=== PATIENT | female | born 1990 | race Caucasian/White ===

== ENCOUNTER 2016-08-11 14:52 | Emergency (ER) | payer BC, OTHER ==
[~2016-08-11] VITALS: Ht 170.2 cm; Wt 142.8 kg
[2016-08-11 14:54] VITALS: TEMP 36.6; Ht 170.2 cm; Wt 142.8 kg
[2016-08-11] MEDS ORDERED: LABETALOL HCL IV 5 MG/ML 20ML IV STA ×2 (15:59→16:54)
--- NOTE | 2016-08-11 16:01 | EMERGENCY ROOM VISIT NOTE ---
ED Visit Note First contact with patient: 15:05 I did evaluate and examine this patient myself. I did guide management for the patient. I agree with the APC's assessment as discussed. Please see the APC's dictation for further details. I did independently review the EKG and blood work. The patient was blowing her nose very forcefully today and developed soft tissue swelling to the right naris. On examination she appears to have a septal hematoma which is nontender to palpation. She is also very hypertensive. She states that she was previously on lisinopril but was taken off by her doctor because of the adverse reaction of cough. She was not placed on any other medications. She denies any headache, visual complaints, chest pain, shortness breath or urinary symptoms. I did order blood work on the patient as well as a twelve-lead EKG. She is placed on a monitor and given IV labetalol. I did discuss the case with Dr. Lai of otolaryngology. He will come in to the ED to assess the patient's septal hematoma.
--- NOTE | 2016-08-11 16:14 | DIAGNOSTIC IMAGING REPORT ---
SINGLE VIEW CHEST CLINICAL HISTORY: Hypertension. FINDINGS: 2 AP, portable, upright chest radiographs are compared to study dated 01/17/2015. The examination is degraded by portable technique, large body habitus, and patient rotation. The cardiomediastinal silhouette is unremarkable. The lungs and pleural spaces are clear. No pneumothorax is seen. The bony thorax is grossly intact. IMPRESSION: No active disease in the chest. Electronically signed by: Andres Peter M.D. 08/11/2016 4:13 PM Dictated Date/Time: 08/11/2016 4:12 PM
[2016-08-11 16:18] LABS: BASO % 0.2 %; BASO ABS # 0.02 K/uL (0-0.2); COMPLETE YES; EOS % 3.6 %; HEMATOCRIT 45.8 % (37-47); IG% 0.1 %; LYMPH % 30.5 %; LYMPH ABS # 2.91 K/uL (1.2-3.4); MEAN CELL VOLUME 87.7 fL (80-100); MEAN CORPUSCULAR HEMOGLOBIN 30.3 pg (25-34); MEAN CORPUSCULAR HGB CONC 34.5 g/dl (32-36); MEAN PLATELET VOLUME 10.6 fL (7.4-10.4); MONO % 4.9 %; NEUT % 60.7 %; PLATELET COUNT 234 K/uL (130-400); RED BLOOD COUNT 5.22 M/uL (4.2-5.4); WHITE BLOOD COUNT 9.54 K/uL (4.8-10.8)
--- NOTE | 2016-08-11 16:30 | EMERGENCY ROOM VISIT NOTE ---
History First contact with patient: 15:05 Chief Complaint: NOSE BLEED (MINOR) Stated Complaint: SOMETHING IN R SIDE NOSTRAL History of Present Illness The patient is a 25 year old female who presents to the Emergency Room with complaints of foreign body sensation in the right nostril that started today. Patient states that she started having a runny nose this morning and was blowing her nose several times when she began to have a nosebleed. She states the bleeding was a slow steady drip and lasted approximately 10 minutes, she was able to stop the bleeding with light pressure. She denies any bleeding into the back of her throat or swallowing blood. She states after the bleeding stopped she noticed a fullness in her right nostril which she thought was a blood clot and tried to remove this by blowing her nose but was unable to do so. She denies any facial trauma, history of nosebleeds, intranasal medications , use of intranasal recreational drugs. She does report a history of hypertension in the past, states her PCP had placed her on lisinopril, but this was stopped over a year ago due to her development of a cough. She is currently not on any antihypertensive medications. She states she does not take any blood thinners or regular aspirin products. Review of Systems GENERAL: Denies fevers, chills, malaise, fatigue, unintentional weight changes. HEENT: Denies dizziness, visual problems, hearing loss, tinnitus. Denies difficulty swallowing or oral lesions. + Nosebleed. PULMONARY: Denies cough, shortness of breath, sputum production or hemoptysis. CARDIOVASCULAR: Denies chest pain, palpitations, dyspnea on exertion, orthopnea or peripheral edema. GASTROINTESTINAL: Denies diarrhea, constipation, nausea, vomiting, or abdominal pain. GENITOURINARY: Denies dysuria, frequency, urgency or nocturia. NEUROLOGIC: Denies history of epilepsy, CVA, TIA or chronic headaches. MUSCULOSKELETAL: Denies history of joint tenderness/swelling. SKIN: Denies rashes or lesions. PSYCHIATRIC: Denies history of depression or mental illness. ENDOCRINE: Denies history of diabetes, thyroid disorders, abnormal hair growth or sexual dysfunction. Social History Smoking Status: Current Every Day Smoker Alcohol Use: none Occupation Status: employed Current/Historical Medications Scheduled Amoxicillin & Pot Clavulanate (Augmentin 875-125 mg), 1 TAB PO BID Hydrochlorothiazide (Hydrochlorothiazide), 1 TAB PO DAILY Prednisone (Prednisone), 50 MG PO DAILY Allergies Coded Allergies: No Known Allergies (Unverified , 08/11/16) Physical Exam Vital Signs Date Time Temp Pulse Resp B/P Pulse Ox O2 Delivery O2 Flow Rate FiO2 08/11/16 19:18 66 18 188/117 99 Room Air 08/11/16 18:07 75 18 135/79 08/11/16 17:06 76 18 207/125 08/11/16 15:52 178/118 08/11/16 15:33 82 18 235/148 98 Room Air 08/11/16 14:54 36.6 90 20 163/115 100 Room Air Physical Exam CONSTITUTIONAL: No acute distress. Well appearing and well nourished. Alert and oriented X 4 with normal affect. HEENT: Normocephalic, atraumatic. Pupils equal, round and reactive to light, EOMI. TMs normal. Pharynx normal. There is a large hematoma within the right naris that appears to be originating from the septum, nontender to palpation. Hematoma appears to completely obscure the naris. The left naris is patent. No active bleeding noted. NECK: Supple, full active range of motion without discomfort. RESPIRATORY: Clear to auscultation bilaterally with no wheezing, crackles, rhonchi or stridor. Equal expansion bilaterally. CARDIOVASCULAR: Regular rate and rhythm with no murmurs, rubs or gallops. Normal peripheral perfusion. No edema. GASTROINTESTINAL: Soft, nontender, nondistended. Bowel sounds present in all quadrants. MUSCULOSKELETAL: Full range of motion of all joints without discomfort. INTEGUMENTARY: No rash or other significant dermatologic conditions noted. NEUROLOGIC: Cranial nerves II-XII grossly intact. No focal neurologic deficits noted. Medical Decision & Procedures ER Provider Diagnostic Interpretation: SINGLE VIEW CHEST CLINICAL HISTORY: Hypertension. FINDINGS: 2 AP, portable, upright chest radiographs are compared to study dated 01/17/2015. The examination is degraded by portable technique, large body habitus, and patient rotation. The cardiomediastinal silhouette is unremarkable. The lungs and pleural spaces are clear. No pneumothorax is seen. The bony thorax is grossly intact. IMPRESSION: No active disease in the chest. ------ CT SCAN OF THE PARANASAL SINUSES WITH IV CONTRAST CLINICAL HISTORY: Epistaxis. Clinical concern for nasopharyngeal mass. COMPARISON STUDY: No priors. TECHNIQUE: High-resolution CT scan of the paranasal sinuses is performed following the IV administration of 120 cc of Optiray 320. Images are reviewed in the axial, sagittal, and coronal planes. IV contrast was not administered for this examination. CT DOSE: 662.66 mGy.cm FINDINGS: Nasopharynx: No nasopharyngeal mass is identified as clinically queried. Maxillary antra: There is moderate mucosal thickening and fluid with subtotal opacification of the right maxillary antrum. Hyperdense secretions are observed. Trace mucosal thickening is seen on the left maxillary antrum. Anterior ethmoid sinuses: Mild to moderate mucosal thickening on the right. Clear on the left. Posterior ethmoid sinuses: Moderate mucosal thickening on the right. Clear on the left. Sphenoid sinuses: Trace mucosal thickening seen bilaterally. Frontal sinuses: Mild mucosal thickening seen on the right. Clear on the left. Ostiomeatal complexes: Clear on the left. Almost completely occluded on the right. Frontoethmoidal and sphenoethmoidal recesses: The right frontoethmoidal recess is severely narrowed by mucosal thickening. The left frontoethmoidal recess is clear. The sphenoethmoidal recesses are clear, noting narrowing on the right secondary to mucosal thickening. Carotid arteries: The carotid arteries are compared noting a septal attachment on the right. Ethmoid roofs: There is asymmetric elevation of the right ethmoid roof as compared to the left. Nasal turbinates: Normal in appearance. Nasal septum: There is rightward deviation of the bony nasal septum with a large spur. Optic nerves: Covered. Orbits: The bony orbits are intact. Orbital contents are normal in appearance. Calvarium: The imaged calvarium is normal in appearance Mastoid air cells: There is a trace right mastoid effusion. The left mastoid air cells are clear. Brain parenchyma: Partially visualized brain parenchyma is within normal limits. IMPRESSION: 1. No mass lesion is identified as clinically queried. Follow-up with ENT is recommended. 2. Paranasal sinus disease as above. Laboratory Results 08/11/16 16:00 Red Blood Count 5.22, Mean Corpuscular Volume 87.7, Mean Corpuscular Hemoglobin 30.3, Mean Corpuscular Hemoglobin Concent 34.5, Mean Platelet Volume 10.6, Neutrophils (%) (Auto) 60.7, Lymphocytes (%) (Auto) 30.5, Monocytes (%) (Auto) 4.9, Eosinophils (%) (Auto) 3.6, Basophils (%) (Auto) 0.2, Neutrophils # (Auto) 5.79, Lymphocytes # (Auto) 2.91, Monocytes # (Auto) 0.47, Eosinophils # (Auto) 0.34, Basophils # (Auto) 0.02 08/11/16 16:00 Test 08/11/16 15:50 08/11/16 16:00 08/11/16 19:20 White Blood Count 9.54 K/uL (4.8-10.8) Red Blood Count 5.22 M/uL (4.2-5.4) Hemoglobin 15.8 g/dL (12.0-16.0) Hematocrit 45.8 % (37-47) Mean Corpuscular Volume 87.7 fL (80-100) Mean Corpuscular Hemoglobin 30.3 pg (25-34) Mean Corpuscular Hemoglobin Concent 34.5 g/dl (32-36) Platelet Count 234 K/uL (130-400) Mean Platelet Volume 10.6 fL (7.4-10.4) Neutrophils (%) (Auto) 60.7 % Lymphocytes (%) (Auto) 30.5 % Monocytes (%) (Auto) 4.9 % Eosinophils (%) (Auto) 3.6 % Basophils (%) (Auto) 0.2 % Neutrophils # (Auto) 5.79 K/uL (1.4-6.5) Lymphocytes # (Auto) 2.91 K/uL (1.2-3.4) Monocytes # (Auto) 0.47 K/uL (0.11-0.59) Eosinophils # (Auto) 0.34 K/uL (0-0.5) Basophils # (Auto) 0.02 K/uL (0-0.2) RDW Standard Deviation 40.2 fL (36.4-46.3) RDW Coefficient of Variation 12.6 % (11.5-14.5) Immature Granulocyte % (Auto) 0.1 % Immature Granulocyte # (Auto) 0.01 K/uL (0.00-0.02) Prothrombin Time 10.2 SECONDS (9.0-12.0) Prothromb Time International Ratio 1.0 (0.9-1.1) Activated Partial Thromboplast Time 27.9 SECONDS (21.0-31.0) Partial Thromboplastin Ratio 1.1 Anion Gap 5.0 mmol/L (3-11) Est Creatinine Clear Calc Drug Dose 149.0 ml/min Estimated GFR () 109.6 Estimated GFR (Non- 94.6 BUN/Creatinine Ratio 15.5 (10-20) Calcium Level 8.6 mg/dl (8.5-10.1) Total Bilirubin 0.4 mg/dl (0.2-1) Direct Bilirubin < 0.1 mg/dl (0-0.2) Aspartate Amino Transf (AST/SGOT) 12 U/L (15-37) Alanine Aminotransferase (ALT/SGPT) 27 U/L (12-78) Alkaline Phosphatase 87 U/L (45-117) Total Protein 7.1 gm/dl (6.4-8.2) Albumin 3.7 gm/dl (3.4-5.0) Lipase 115 U/L (73-393) Thyroid Stimulating Hormone (TSH) 0.875 uIu/ml (0.300-4.500) Urine Color YELLOW Urine Appearance CLOUDY (CLEAR) Urine pH 7.5 (4.5-7.5) Urine Specific [place] 1.041 (1.000-1.030) Urine Protein NEG (NEG) Urine Glucose (UA) NEG (NEG) Urine Ketones NEG (NEG) Urine Occult Blood NEG (NEG) Urine Nitrite NEG (NEG) Urine Bilirubin NEG (NEG) Urine Urobilinogen NEG (NEG) Urine Leukocyte Esterase NEG (NEG) Urine WBC (Auto) 1-5 /hpf (0-5) Urine RBC (Auto) 0-4 /hpf (0-4) Urine Hyaline Casts (Auto) 0 /lpf (0-5) Urine Epithelial Cells (Auto) >30 /lpf (0-5) Urine Bacteria (Auto) 1+ (NEG) Medications Administered Medications (Trade) Dose Ordered Sig/Twan Route Start Time Stop Time Status Last Admin Dose Admin Labetalol HCl (Normodyne IV) 10 mg NOW STAT IV 08/11/16 15:59 08/11/16 16:01 DC 08/11/16 15:59 10 MG Labetalol HCl 10 mg 10 mg NOW STAT IV 08/11/16 16:54 08/11/16 16:56 DC 08/11/16 17:15 10 MG Ampicillin Sodium/ Sulbactam Sodium/ Sodium Chloride (Unasyn Inj/Nss 100ml) 108 ml @ 200 mls/hr ONE ONCE IV 08/11/16 17:45 08/11/16 18:17 DC 08/11/16 17:55 200 MLS/HR Hydrochlorothiazide (Hydrochlorothiazide Tab) 12.5 mg NOW STAT PO 08/11/16 19:24 08/11/16 19:25 DC 08/11/16 19:30 12.5 MG ECG Indication: other (hypertension) Rate (beats per minute): 74 Rhythm: normal sinus Comparison ECG Date: no prior available Medical Decision CC: Patient presenting with complaint of foreign body sensation of the right nostril Interpretation of Labs: Unremarkable, specifically no electrolytes abnormalities , normal renal function. No proteinuria. She is not . Differential Diagnosis: Includes, but not limited to epistaxis, nasal trauma, septal hematoma, nasal foreign body, nasal pharyngeal mass. Summary: Patient was evaluated at bedside, history of physical exam performed. Patient is alert and oriented, no distress. No active bleeding from the nose. Physical exam findings concerning for a right sided septal hematoma versus intranasal mass. Patient's history does not suggest any causative trauma. This lesion is not actively bleeding and is nontender to palpation. Patient is quite hypertensive on initial evaluation, as well as on multiple rechecks, therefore additional workup with labs, UA, EKG, chest x-ray also ordered. IV labetalol given to treat persistent hypertension in the setting of possible bleeding. Patient discussed with my attending, Dr. Keen, who agrees with my assessment and plan. Patient was discussed with Dr. Lai, ENT service, who agrees to come evaluate the patient for possible surgical intervention. Patient evaluated at bedside by Dr. Lai, states not a septal hematoma concerning for a polyp, benign mass versus possible malignancy. Purulent discharge elicited during manipulation of the mass by Dr. Lai. He recommends CT of the sinuses with and without contrast, which was ordered. Patient given IV dose of Unasyn with plans to send her out on Augmentin and prednisone burst, which was recommended by Dr. Lai. Blood pressure transiently improved with IV labetalol but remains elevated. Patient has no other symptoms to her hypertension and has a known chronic diagnosis of this. She was started on 12.5 mg hydrochlorothiazide and instructed to follow closely with her PCP. Patient reassessed multiple times throughout ED stay, remained stable and well- appearing. Stable at time of discharge. Impression Primary Impression: Intranasal mass Additional Impression: Maxillary sinusitis Departure Information Dispostion Home / Self-Care Condition GOOD Prescriptions Hydrochlorothiazide (HYDROCHLOROTHIAZIDE) 12.5 Mg Tab 1 TAB PO DAILY for 30 Days, #30 TAB 1 Refill Prov: Charisma Cote., BLOCK SAWYER 08/11/16 Prednisone (Prednisone) 50 Mg Tab 50 MG PO DAILY for 4 Days, #4 TAB Prov: [place],Charisma Arango., BLOCK SAWYER 08/11/16 Amoxicillin & Pot Clavulanate (Augmentin 875-125 mg) 1 Tab Tab 1 TAB PO BID for 10 Days, #20 TAB Prov: Charisma Cote., BLOCK SAWYER 08/11/16 Referrals Cherelle Del Rosario D.O. (PCP) Kirss Lai M.D. Patient Instructions ED Sinusitis Abx Tx, My [facility], Polyps Nasal Additional Instructions Apply ice to the right side of your face/nose to help reduce swelling. 5 minutes on, 5 minutes off at a time, several times throughout the day. Use normal saline nasal spray to keep both nostrils moist. Use the Afrin nasal spray with the cotton swabs provided to you to pack the nostril if you start to have bleeding from your nose. Try to avoid blowing your nose. If you must below your nose, do so very gently. Prescriptions have been sent to your pharmacy for Augmentin, which is an antibiotic to treat sinus infection, prednisone, which is a steroid to treat the swelling in your nose, and hydrochlorothiazide to treat her high blood pressure. Please follow-up with your PCP in the next week to have your blood pressure rechecked and discuss ongoing medication needs for your blood pressure. Call Dr. Lai's office on Saturday at 8:30 AM to arrange for an appointment later that day. This is to follow-up for the lesion in your nose. Please return to the ER for any worsening symptoms, including severe headache, persistent bleeding from the nose that does not stop after 30 minutes, bleeding into the back of her throat or swallowing blood, vomiting up blood, chest pain, shortness of breath, severe dizziness or passing out, fevers/chills/feeling ill , or any other concerns. Problem Qualifiers Additional Impression: Maxillary sinusitis Chronicity: unspecified Qualified Codes: J32.0 - Chronic maxillary sinusitis
[2016-08-11 16:32] LABS: ALT/SGPT 27 U/L (12-78); AST/SGOT 12 U/L (15-37); BLOOD UREA NITROGEN 13 mg/dl (7-18); BUN/CREATININE RATIO 15.5 (10-20); CALCIUM 8.6 mg/dl (8.5-10.1); CARBON DIOXIDE 31 mmol/L (21-32); CHLORIDE 106 mmol/L (98-107); CREATININE 0.85 mg/dl (0.60-1.20); GLUCOSE 100 mg/dl (70-99); PARTIAL THROMBOPLASTIN RATIO 1.1; POTASSIUM 3.6 mmol/L (3.5-5.1); PROTHROMBIN TIME (PATIENT) 10.2 SECONDS (9.0-12.0); SODIUM 142 mmol/L (136-145)
[2016-08-11 16:43] LABS: ALKALINE PHOSPHATASE 87 U/L (45-117); THYROID STIMULATING HORMONE 0.875 uIu/ml (0.300-4.500)
[2016-08-11] MEDS ORDERED: OXYMETAZOLINE HCL 0.05% NA SPR 15 ML BTL ONE (17:00)
[2016-08-11] MEDS ORDERED: OPTIRAY 320 IV PRN (17:15)
[2016-08-11] MEDS ORDERED: AMPICILLIN/SULBACTAM SOD INJ 3,000 MG in SODIUM CHLORIDE 0.9% 100ML 100 ML IV ONE (17:45)
--- NOTE | 2016-08-11 17:49 | DIAGNOSTIC IMAGING REPORT ---
CT SCAN OF THE PARANASAL SINUSES WITH IV CONTRAST CLINICAL HISTORY: Epistaxis. Clinical concern for nasopharyngeal mass. COMPARISON STUDY: No priors. TECHNIQUE: High-resolution CT scan of the paranasal sinuses is performed following the IV administration of 120 cc of Optiray 320. Images are reviewed in the axial, sagittal, and coronal planes. IV contrast was not administered for this examination. CT DOSE: 662.66 mGy.cm FINDINGS: Nasopharynx: No nasopharyngeal mass is identified as clinically queried. Maxillary antra: There is moderate mucosal thickening and fluid with subtotal opacification of the right maxillary antrum. Hyperdense secretions are observed. Trace mucosal thickening is seen on the left maxillary antrum. Anterior ethmoid sinuses: Mild to moderate mucosal thickening on the right. Clear on the left. Posterior ethmoid sinuses: Moderate mucosal thickening on the right. Clear on the left. Sphenoid sinuses: Trace mucosal thickening seen bilaterally. Frontal sinuses: Mild mucosal thickening seen on the right. Clear on the left. Ostiomeatal complexes: Clear on the left. Almost completely occluded on the right. Frontoethmoidal and sphenoethmoidal recesses: The right frontoethmoidal recess is severely narrowed by mucosal thickening. The left frontoethmoidal recess is clear. The sphenoethmoidal recesses are clear, noting narrowing on the right secondary to mucosal thickening. Carotid arteries: The carotid arteries are compared noting a septal attachment on the right. Ethmoid roofs: There is asymmetric elevation of the right ethmoid roof as compared to the left. Nasal turbinates: Normal in appearance. Nasal septum: There is rightward deviation of the bony nasal septum with a large spur. Optic nerves: Covered. Orbits: The bony orbits are intact. Orbital contents are normal in appearance. Calvarium: The imaged calvarium is normal in appearance Mastoid air cells: There is a trace right mastoid effusion. The left mastoid air cells are clear. Brain parenchyma: Partially visualized brain parenchyma is within normal limits. IMPRESSION: 1. No mass lesion is identified as clinically queried. Follow-up with ENT is recommended. 2. Paranasal sinus disease as above. Electronically signed by: Andres Peter M.D. 08/11/2016 5:48 PM Dictated Date/Time: 08/11/2016 5:41 PM
[2016-08-11] MEDS ORDERED: AMOX875T PO (18:03)
[2016-08-11] MEDS ORDERED: PRED50TA PO (18:03)
--- NOTE | 2016-08-11 18:33 | HISTORY & PHYSICAL EXAMINATION ---
DATE OF ADMISSION: 08/11/2016 DIAGNOSIS: Acute epistaxis with possible right septal hematoma. HISTORY OF PRESENT ILLNESS: This 25-year-old lady presented to the ER with a foreign body sensation in the right nostril and when she blew her nose she started having epistaxis. She was able to stop bleeding with pressure; however, she noted a fullness in the right nostril. PAST MEDICAL HISTORY: Pertinent for hypertension. Evidently she was on lisinopril, but was taken off of it because of a cough with no other replacement. PAST MEDICAL HISTORY: Otherwise unremarkable. ALLERGIES: None known. MEDICATIONS: None at present. REVIEW OF SYSTEMS: Otherwise, negative. Specifically, she has had no history of chronic sinusitis or chronic headaches. PHYSICAL EXAMINATION: GENERAL: WNWD female, alert, oriented x3, coherent and cooperative. VITAL SIGNS: Temp 36.6, BP is elevated at very high of 235/148 and a low of 163/115. HEAD: Normocephalic. EYES: Normal. EARS: Tympanic membranes intact. NOSE: Nasal passages showed a hemorrhagic object in the right nostril. This was decongested with Afrin and anesthetized using topical Cetacaine. This appeared to be a round polypoid type lesion. This was grasped with forceps; however the object appeared to be attached superiorly and there was evidence of some purulence coming from behind the polyps. THROAT: Oropharynx normal. NECK: Supple. HEART: RRR. LUNGS: Clear. LABS: Her CBC was within normal limits with 9500 white count, with no elevation of eosinophils. The electrolytes were within normal limits. IMPRESSION: Right nasal polyp with no sign of hematoma, the differential would include a hemorrhagic polyp or a pyogenic granuloma, lower down on the list would be polyangiitis with eosinophilia and/or some type of more rare tumor. PLAN: Is for CT scan of the sinuses and then follow up in my office on Saturday and also control of the hypertension.
[2016-08-11] MEDS ORDERED: HYDR12.55 PO (18:45)
[2016-08-11 19:18] VITALS: BP 188/117; PULSE 66; O2SAT 99
[2016-08-11] MEDS ORDERED: HYDROCHLOROTHIAZIDE 25 MG TAB PO STA (19:24)
[2016-08-11 19:45] LABS: URINE APPEARANCE CLOUDY (CLEAR); URINE BILIRUBIN NEG (NEG); URINE COLOR YELLOW; URINE EPITHELIAL CELL AUTO >30 /lpf (0-5); URINE NITRITE NEG (NEG); URINE PH 7.5 (4.5-7.5); URINE SPECIFIC GRAVITY 1.041 (1.000-1.030); UROBILINOGEN NEG (NEG)
[2016-08-11 19:46] LABS: MANUAL MICROSCOPIC REQUIRED? NO; REVIEW REQ? YES
[2016-08-14] MEDS ORDERED: HYDR12.55 PO (14:08)
[2016-08-14] MEDS ORDERED: AMOX875T PO (14:08)
[2016-08-14] MEDS ORDERED: PRED50TA PO (14:08)
[2016-08-17] MEDS ORDERED: NRV5 PO (10:44)
[2016-08-17] MEDS ORDERED: CLIN300C10 PO (14:09)
== END 2016-08-11 19:38 | disposition home or self-care (01) ==
LOC: C.EDB 14:54 → C.EDD 19:38
DX: R22.0 Localized swelling, mass and lump, head (principal); J32.0 Chronic maxillary sinusitis; J33.9 Nasal polyp, unspecified; I10 Essential (primary) hypertension; F17.210 Nicotine dependence, cigarettes, uncomplicated

== ENCOUNTER 2016-08-16 12:34 | Observation (INO) | payer BC ==
[2016-08-14 14:08] VITALS: BMI 51.0
[2016-08-14 14:13] VITALS: BMI 51.0
[2016-08-15 09:45] VITALS: BMI 48.0
--- NOTE | 2016-08-15 10:06 | PAT Medication Instructions ---
Service Date August 15, 2016. Current Home Medication List Amoxicillin & Pot Clavulanate (Augmentin 875-125 mg), 1 TAB PO BID Hydrochlorothiazide (Hydrochlorothiazide), 1 TAB PO DAILY Prednisone (Prednisone), 50 MG PO DAILY Medication Instructions For Your Scheduled Surgery - Hold the following medications the morning of surgery: Hydrochlorothiazide (Hydrochlorothiazide), 1 TAB PO DAILY - Take the following medications the morning of surgery with a sip of water: Prednisone (Prednisone), 50 MG PO DAILY Amoxicillin & Pot Clavulanate (Augmentin 875-125 mg), 1 TAB PO BID - Take the following medications as scheduled the night before surgery: Amoxicillin & Pot Clavulanate (Augmentin 875-125 mg), 1 TAB PO BID If you have any questions please call us at [phone] or [phone] or [phone]
--- NOTE | 2016-08-15 12:35 | History and Physical ---
History & Physical Date August 15, 2016. Chief Complaint epistaxis/antrochoanal polyp, right, chronic pansinusitis History of Present Illness The patient is a 25 year old female with complaints of bleeding from right nostril after blowing nose, polyp hanging out right nostril Additional History Hepatic Disease: No Endocrine Disorder: No Kidney Disease: No Hypertension: Yes Heart Disease: No Bleeding Tendencies: Yes Infectious Diseases: No Allergies Coded Allergies: Lisinopril (Verified Adverse Reaction, Mild, COUGH, 08/15/16) Home Medications Scheduled Amoxicillin & Pot Clavulanate (Augmentin 875-125 mg), 1 TAB PO BID Hydrochlorothiazide (Hydrochlorothiazide), 1 TAB PO DAILY Prednisone (Prednisone), 50 MG PO DAILY Physical Examination Skin: warm/dry, no rash Eyes: normal inspection, EOMI, sclerae normal ENT: normal ENT inspection, pharynx normal, + pertinent finding (rightnostril totally blocked by polyp) Head: normocephalic, atraumatic Neck: supple, no adenopathy, trachea midline Respiratory/Chest: lungs clear, normal breath sounds, no respiratory distress Cardiovascular: regular rate, rhythm, no edema, no murmur Abdomen / GI: normal bowel sounds, non tender Back: normal inspection Extremities: normal inspection, normal range of motion Neurologic/Psych: no motor/sensory deficits, alert, normal reflexes, oriented x 3 Diagnosis epistaxis, chronic sinusitis, right antrochoanal polyp Plan of Treatment endoscopic sinus surgery, control epistaxis
[~2016-08-16] VITALS: Ht 170.2 cm; Wt 139.8 kg
[~2016-08-16 12:34] MED LIST: AMOX875T PO; CEFAZOLIN 2000 MG/60 ML D5W IV SCH; HYDR12.55 PO; LACTATED RINGER'S 1000ML 1,000 ML IV SCH; PRED50TA PO
[2016-08-16] MEDS ORDERED: LIDOCAINE HCL 2% 2 ML VIAL (20MG/ML) ONE (12:58)
[2016-08-16] MEDS ORDERED: MIDAZOLAM HCL 1 MG/ML 2ML VIAL ONE (12:58)
[2016-08-16] MEDS ORDERED: ONDANSETRON INJ 2 MG/ML 2 ML VIAL ONE (12:58)
[2016-08-16] MEDS ORDERED: ROCURONIUM BROMIDE 10 MG/ML 5 ML VIAL ONE (12:58)
[2016-08-16] MEDS ORDERED: FENTANYL CITRATE INJ 50 MCG/1 ML 2 ML VIAL ONE ×2 (12:58→13:59)
[2016-08-16] MEDS ORDERED: GLYCOPYRROLATE INJ 0.2 MG/ML VIAL ONE (12:58)
[2016-08-16] MEDS ORDERED: PROPOFOL IV EMULSION 10 MG/ML 20 ML VIAL IV ONE ×2 (12:58→14:46)
[2016-08-16] MEDS ORDERED: NEOSTIGMINE METHYLSULFATE 5 MG/5 ML SYR ONE (12:58)
[2016-08-16] MEDS ORDERED: DEXAMETHASONE SOD INJ 4 MG/ML VIAL ONE (12:58)
[2016-08-16] MEDS ORDERED: LIDO 2%/EPINEPHRINE 1:100000 20 ML VIAL INFIL ONE (12:59)
[2016-08-16] MEDS ORDERED: MUPIROCIN 2% OINT 22 GM TUBE ONE (12:59)
[2016-08-16] MEDS ORDERED: LIDOCAINE 4% INH SOLN 4 ML BTL ONE (12:59)
[2016-08-16] MEDS ORDERED: EpINEphrine INJ 1MG/ML AMP 1 MG/ML AMP ONE ×2 (12:59→14:34)
[2016-08-16] MEDS ORDERED: GELATIN SPONGE 12-7MM ONE (12:59)
[2016-08-16 13:00] VITALS: BP 137/112; PULSE 86; TEMP 36.6; O2SAT 96; Ht 170.2 cm; Wt 139.8 kg
[2016-08-16] MEDS ORDERED: TRIAMCINOLONE ACET 40 MG/ML VIAL ONE (13:00)
--- NOTE | 2016-08-16 13:14 | History & Physical Bridge Note ---
H&P Re-Evaluation Bridge Note: I have examined the patient, reviewed the History & Physical and in the interval since the performance of the History & Physical I have noted the following changes of clinical significance: No changes noted
[2016-08-16] MEDS ORDERED: ONDANSETRON INJ 2 MG/ML 2 ML VIAL IV PRN ×2 (14:00→16:00)
[2016-08-16] MEDS ORDERED: EpHEDrine SULFATE INJ 50 MG/ML AMP IV PRN (14:00)
[2016-08-16] MEDS ORDERED: PROMETHAZINE HCL INJ 6.25 MG in SODIUM CHLORIDE 0.9% 50ML 50 ML IV PRN (14:00)
[2016-08-16] MEDS ORDERED: CEFAZOLIN SOD 1 GM VIAL ONE (14:00)
[2016-08-16] MEDS ORDERED: FENTANYL CITRATE INJ 50 MCG/1 ML 2 ML VIAL IV PRN (14:00)
[2016-08-16] MEDS ORDERED: ATROPINE SULFATE 0.1 MG/ML 5ML SYR IV PRN (14:00)
[2016-08-16] MEDS ORDERED: EpHEDrine SULFATE INJ 50 MG/ML AMP ONE (14:05)
[2016-08-16] MEDS ORDERED: SUCCINYLCHOLINE CHLORIDE 20 MG/ML 10 ML VIAL IV ONE (14:46)
--- NOTE | 2016-08-16 15:57 | Anesthesiology Progress Note ---
Anesthesia Post Op Note Date & Time August 16, 2016 at 15:57 Vital Signs Pain Intensity: 0 Vital Signs Past 12 Hours Date Time Temp Pulse Resp B/P Pulse Ox O2 Delivery O2 Flow Rate FiO2 08/16/16 15:50 103 18 149/100 96 Mask 10 08/16/16 15:42 36.3 90 16 145/110 98 Mask 10 08/16/16 13:00 36.6 86 21 137/112 96 Room Air Notes Mental Status: alert / awake / arousable, participated in evaluation Pt Amnestic to Procedure: Yes Nausea / Vomiting: adequately controlled Pain: adequately controlled Airway Patency, RR, SpO2: stable & adequate BP & HR: stable & adequate Hydration State: stable & adequate Anesthetic Complications: no major complications apparent
[2016-08-16] MEDS ORDERED: ACETAMINOPHEN 325 MG TAB PO PRN (16:00)
[2016-08-16] MEDS ORDERED: OXYCODONE/ACETAMINOPHEN 5-325 TAB PO PRN ×2 (16:00)
[2016-08-16] MEDS ORDERED: OXAZEPAM 10MG CAP PO PRN (16:00)
--- NOTE | 2016-08-16 16:11 | OPERATIVE REPORT ---
DATE OF OPERATION: 08/16/2016 PREOPERATIVE DIAGNOSES: Chronic sinusitis with epistaxis and right antrochoanal polyp. POSTOPERATIVE DIAGNOSES: Same. PROCEDURE: Right and left frontal, right and left sphenoid, right and left total ethmoid, and right and left maxillary sinus antrostomy. SURGEON: Kriss Lai MD ANESTHESIA: General endotracheal. COMPLICATIONS: None. BLOOD LOSS: 100 mL. HISTORY OF PRESENT ILLNESS: A 25-year-old lady with acute bleeding from a large right nasal polyp that was hanging out of her nose. Because of the bleeding, she requested definitive treatment. DESCRIPTION OF PROCEDURE: The patient was brought to the operating room placed in supine position. General endotracheal anesthesia was induced. She was prepped with Betadine paint and draped in usual sterile manner. Nose was decongested using topical cottonoids with a solution of 4 mL of 4% Xylocaine mixed with 1 mL of epinephrine. Injection of 1% Xylocaine with 1:100,000 strength epinephrine was also used. A PrestaShop device was calibrated and used for the entire procedure. The right sphenoid was cannulated with guidewire, dilated using 6 mm balloon as was the left sphenoid. The right maxillary sinus had a large antrochoanal polyp; however, the left maxillary sinus was cannulated with a guidewire and dilated using the 6 mm balloon. The right frontal sinus was cannulated with guidewire and dilated using the 6 mm balloon. The guidewire was left in place as a marker. Frontal sinusotomy was performed by removing the anterior wall and the posterior wall of the agger nasi cell. At this point, total ethmoidectomy was performed. The entire middle meatus and all the ethmoid air cells were filled with polyps. The bullae ethmoidalis was opened and the ground lamella was penetrated and the posterior ethmoid air cells were opened. The skull base of lamina papyracea were delineated with the BrainLAB device and all the posterior ethmoid air cells were exonerated using the shaver coupled with the BrainLab device and then these structures were followed anteriorly to exonerate all the anterior ethmoid air cells up to the previously dilated nasofrontal duct. The right nasofrontal duct was medial to a Ed type 3 supraethmoidal air cell. The maxillary sinus was opened by removing the large right antrochoanal polyp and polypoid tissue inside the sinus. She had already eroded a large opening; however, the natural ostial had to be connected to this large posterior accessory opening, creating 1 maxillary sinus opening. Sphenoid was opened by removing polypoid tissue at the anterior face at the inferior border of the superior turbinate. The left frontal sinusotomy, total ethmoidectomy, sphenoidotomy, and maxillary sinus antrostomies were performed in similar manner. On the left side, the sphenoid and maxillary sinus ostia were left as the natural opening after ballooning. The stents were placed. There was 1 mini stent in the right nasofrontal duct and 2 regular stents in the ethmoid area. The patient still had a septal deviation to the right, however, this was not corrected due to patient's hypertension and amount of bleeding. Septoplasty may be performed at a later time if patient desires. The patient tolerated the procedure well and was taken to recovery area in satisfactory condition. I attest to the content of the Intraoperative Record and any orders documented therein. Any exceptio ns are noted below.
[2016-08-16] MEDS ORDERED: NURSING VERBAL MED ORDER ONE (16:15)
[2016-08-16] MEDS ORDERED: IV FLUIDS COMPLETED PRN (16:30)
[2016-08-16] MEDS ORDERED: SODIUM CHLORIDE 0.65% NA SOLN 45 ML (OCEAN) PRN (16:45)
[2016-08-16 17:00] VITALS: BP 160/110; PULSE 88; TEMP 36.8; O2SAT 94
[2016-08-16] MEDS ORDERED: AMLODIPINE BESYLATE 5 MG TAB PO ONE (17:15)
[2016-08-16 17:30] VITALS: BP 153/103; PULSE 83; TEMP 36.6; O2SAT 93; O2SAT 94
--- NOTE | 2016-08-16 17:48 | Medical Consult ---
Consultation Date of Consultation: August 16, 2016. Attending Physician: Kriss Lai M.D. Reason for Consultation: HTN History of Present Illness 25 year old female who is s/p right and left frontal, right and left sphenoid, right and left total ethmoid, and right and left maxillary sinus antrostomy today by Dr. aLi. Patient was seen in the ER 3 days ago for epistaxis and feeling of a foreign body in her right nostril. Patient was found to have nasal polyp. She was seen by Dr. Lai at that time and then presented for the planned procedure today. Patient has a history of hypertension. She had been on Lisinopril in the past but it was stopped a few months ago due to cough. Per outpatient records, patient was to be taking amlodipine however reports she never started taking it. When she was seen in the ER 3 days ago, BP was noted to be elevated and she was treated with IV Labetalol and discharged in HCTZ. Patient reports she has not started taking the HCTZ either. Post operatively the patient is doing well. She reports she sneezed once and now she has some mild epistaxis. She reports her pain is well controlled. She reports a mild headache. She denies chest pain and shortness of breath. No abdominal pain, nausea, or vomiting. She denies fever and chills. Patient is noted to be somewhat tearful and anxious due to the bleeding. Past Medical/Surgical History Medical Problems: (1) Chronic bronchitis Status: Chronic (2) HTN (hypertension) Status: Chronic Family History noncontributory Social History Smoking Status: Current Every Day Smoker Alcohol Use: occasionally Allergies Coded Allergies: Lisinopril (Verified Adverse Reaction, Mild, COUGH, 08/16/16) Home Medications Augmentin 875-125 mg (Amoxicillin & Pot Clavulanate) 1 Tab Tab 1 Tab PO BID 10 Days WILL COMPLETE 08-23-16 Hydrochlorothiazide 12.5 Mg Tab 1 Tab PO DAILY HAS NOT STARTED MEDICATION YET Current Inpatient Medications Current Inpatient Medications Medications (Trade) Dose Ordered Sig/Twan Route Start Time Stop Time Status Last Admin Dose Admin Cefazolin Sodium 60 ml @ 100 mls/hr PREOP IV 08/16/16 06:00 08/16/16 18:00 Lactated Ringer's (Lr 1000ml) 1,000 ml @ 15 mls/hr Q24H IV 08/16/16 06:00 08/16/16 18:00 Fentanyl Citrate (Fentanyl Inj) 50 mcg Q5M PRN IV 08/16/16 14:00 08/16/16 19:00 Ondansetron HCl 4 mg 4 mg ONE PRN IV 08/16/16 14:00 08/16/16 19:00 Promethazine HCl/ Sodium Chloride (Phenergan Inj/ Nss 50ml) 50.25 ml @ 202 mls/hr ONE PRN IV 08/16/16 14:00 08/16/16 19:00 Ephedrine Sulfate (EpHEDrine SULFATE INJ) 5 mg Q5M PRN IV 08/16/16 14:00 08/16/16 19:00 Atropine Sulfate (Atropine Sulfate 0.1MG/Ml Inj) 0.5 mg Q1M PRN IV 08/16/16 14:00 08/16/16 19:00 Acetaminophen (Tylenol Tab) 650 mg Q4H PRN PO 08/16/16 16:00 09/15/16 15:59 Oxycodone/ Acetaminophen (Percocet 5-325mg Tab) 1 tab Q4H PRN PO 08/16/16 16:00 08/30/16 15:59 Oxycodone/ Acetaminophen (Percocet 5-325mg Tab) 2 tab Q4H PRN PO 08/16/16 16:00 08/30/16 15:59 Ondansetron HCl (Zofran Inj) 4 mg ONE PRN IV 08/16/16 16:00 09/15/16 15:59 Oxazepam (Serax Cap) 10 mg HS PRN PO 08/16/16 16:00 09/15/16 15:59 Miscellaneous (Iv Fluids Completed) 1 ea PRN PRN N/A 08/16/16 16:30 08/16/17 16:29 Sodium Chloride ([place] Nasal [place]) 1 sprays PRN PRN NA 08/16/16 16:45 09/15/16 16:44 Amlodipine Besylate (Norvasc Tab) 5 mg QAM PO 08/17/16 09:00 09/16/16 08:59 Hydralazine HCl (HydrALAZINE INJ) 10 mg Q8H PRN IV. 08/16/16 17:15 09/15/16 17:14 Review of Systems ROS per HPI, all other systems reviewed and negative Physical Exam Date Time Temp Pulse Resp B/P Pulse Ox O2 Delivery O2 Flow Rate FiO2 08/16/16 17:30 94 Nasal Cannula 2.0 08/16/16 17:00 36.8 88 20 160/110 94 Room Air 08/16/16 16:30 Nasal Cannula 2.0 08/16/16 16:20 90 18 138/98 94 Nasal Cannula 3 08/16/16 16:10 36.5 100 18 139/92 94 Nasal Cannula 3 08/16/16 16:00 100 18 165/106 95 Mask 6 08/16/16 15:50 103 18 149/100 96 Mask 10 08/16/16 15:42 36.3 90 16 145/110 98 Mask 10 08/16/16 13:00 36.6 86 21 137/112 96 Room Air General Appearance: + mild distress (tearful and crying however in no acute distress) Head: normocephalic Eyes: normal inspection ENT: + nasal drainage (small amount of bloody drainage noted from both nares, R >L) Neck: supple, no JVD Respiratory/Chest: no respiratory distress, + decreased breath sounds Cardiovascular: regular rate, rhythm, no edema, normal peripheral pulses Abdomen/GI: normal bowel sounds, non tender, soft Extremities/Musculoskelatal: normal inspection, no calf tenderness Neurologic/Psych: no motor/sensory deficits, alert, oriented x 3 Skin: normal color, warm/dry Assessment & Plan S/P ENDOSCOPIC NASAL SURGERY - patient presented to the ER on 08/11 with epistaxis and found to have nasal polyp; was evaluated by Dr. Lai and presented for planned procedure today - s/p right and left frontal, right and left sphenoid, right and left total ethmoid, and right and left maxillary sinus antrostomy - small amount of bleeding from both nares noted - management as per ENT HTN - history of HTN, was taken off Lisinopril a few months ago due to cough and was to start amlodipine however never did - BP currently 160/110 - suspect anxiety is contributing however had high BPs intraoperatively as well - will resume Norvasc 5mg daily and provide PRN hydrazine DVT PROPHYLAXIS - deferred to ENT Attending addendum: The patient was seen and examined Nose bleed has stopped Denies any other symptoms O/E Has nasal pack in place Hemodynamically stable Chest-occasional wheezing anteriorly Heart-regular.no murmur Abdomen-benign,no masses ,bowel sound present Extremities-trace edema bilaterally Labs and Imaging studies were reviewed Has HTN and not been taking her usual med since May Agree with the assessment and plan. DR Jasmyne Infante Thank you for this consultation. We will follow the patient with you during their hospital stay. You can reach a [facility] 22/10 via pager @ .
[2016-08-16 18:45] VITALS: BP 151/101; PULSE 77; TEMP 36.8; O2SAT 94
[2016-08-16] MEDS: HydrALAZINE HCL 20 MG/ML VIAL IV. PRN (18:50)
[2016-08-16 19:32] VITALS: BP 159/95; PULSE 76; TEMP 37.3; O2SAT 94
[2016-08-16 23:10] VITALS: BP 156/88; PULSE 90; TEMP 36.8; O2SAT 94
[2016-08-17 03:09] VITALS: BP 138/89; PULSE 90; TEMP 36.2; O2SAT 94
[2016-08-17 07:18] VITALS: BP 141/101; PULSE 69; TEMP 36.7; O2SAT 93
--- NOTE | 2016-08-17 07:45 | Anesthesiology Progress Note ---
Anesthesia Post Op Note Date & Time August 17, 2016 at 07:45 Vital Signs Pain Intensity: 0.0 Vital Signs Past 12 Hours Date Time Temp Pulse Resp B/P Pulse Ox O2 Delivery O2 Flow Rate FiO2 08/17/16 07:18 36.7 69 20 141/101 93 Room Air 08/17/16 03:09 36.2 90 18 138/89 94 Room Air 08/16/16 23:10 36.8 90 18 156/88 94 Room Air 08/16/16 20:00 Room Air Notes Mental Status: alert / awake / arousable, participated in evaluation Pt Amnestic to Procedure: Yes Nausea / Vomiting: adequately controlled Pain: adequately controlled Airway Patency, RR, SpO2: stable & adequate BP & HR: stable & adequate Hydration State: stable & adequate Anesthetic Complications: no major complications apparent
[2016-08-17 08:03] LABS: HEMATOCRIT 44.4 % (37-47); MEAN CELL VOLUME 86.5 fL (80-100); MEAN CORPUSCULAR HEMOGLOBIN 29.6 pg (25-34); MEAN CORPUSCULAR HGB CONC 34.2 g/dl (32-36); MEAN PLATELET VOLUME 10.5 fL (7.4-10.4); PLATELET COUNT 248 K/uL (130-400); RED BLOOD COUNT 5.13 M/uL (4.2-5.4); WHITE BLOOD COUNT 12.21 K/uL (4.8-10.8)
[2016-08-17 08:30] LABS: BUN/CREATININE RATIO 24.2 (10-20); CREATININE 0.76 mg/dl (0.60-1.20); POTASSIUM 3.6 mmol/L (3.5-5.1)
[2016-08-17] MEDS ORDERED: PROPRANOLOL HCL 60 MG LA CAP PO SCH (09:00)
[2016-08-17] MEDS ORDERED: AMLODIPINE BESYLATE 5 MG TAB PO SCH (09:00)
[2016-08-17] MEDS ORDERED: TRIAMTERENE/HCTZ 37.5/25MG TAB PO SCH (09:00)
[2016-08-17 09:52] VITALS: BP 152/102; PULSE 69
[2016-08-17] MEDS: HydrALAZINE HCL 20 MG/ML VIAL IV. PRN (09:57)
[2016-08-17] MEDS ORDERED: NRV5 PO (10:44)
--- NOTE | 2016-08-17 10:45 | Discharge Instructions ---
Discharge Instructions Date of Service August 17, 2016. Admission Reason for Admission: Hypertension Following Surgery Discharge Discharge Diagnosis / Problem: same Discharge Goals Goal(s): Therapeutic intervention Activity Recommendations Activity Limitations: resume your previous activity . Instructions / Follow-Up Instructions / Follow-Up ACTIVITY RECOMMENDATIONS: * Being up and around is good, but no strenuous activity, heavy lifting or physical exertion for one week. * Keep your head elevated 30 degrees when lying down or sleeping. * Do not blow your nose for 48 hours, sniff back instead. * Avoid hot showers. OVER THE COUNTER MEDICATIONS: * You may use Tylenol * Avoid aspirin or aspirin containing products, e.g. as they may increase bleeding. SPECIAL CARE INSTRUCTIONS: * Expect to have bloody drainage from your nose and/or down your throat for one to three days. Change drip pad as needed. * Begin irrigating your nose with saline solution today, at least six to ten times per day and sniff back to help remove old clots or crust. * You may experience nasal and facial congestion, pain and pressure, this is normal. * Please call with any significant and/or progressive pain, redness, swelling around the eyes, visual changes, fever of 101.5 degrees F, active bleeding or any problems or concerns. * If active bleeding occurs, spray the nose three times at one minute intervals with Afrin spray and call or cell phone: . If unable to reach the doctor, go to the nearest Emergency Department. Special Diet: * Avoid extremely hot fluids. FOLLOW UP VISIT: Follow-up Visit with Dr. Lai If not already scheduled, please call to schedule. Current Hospital Diet Patient's current hospital diet: Regular Diet Discharge Diet Recommended Diet: Regular Diet Procedures Procedures Performed: Endoscopic sinus surgery right and left frontal sinusotomies, right and left sphenoid sinusotomies, right and left total ethmoidectomies, right and left maxillary sinusotomies with computer guidance Pending Studies Studies pending at discharge: no Medical Emergencies . Who to Call and When: Medical Emergencies: If at any time you feel your situation is an emergency, please call 911 immediately. . Non-Emergent Contact Non-Emergency issues call your: Primary Care Provider . "Provider Documentation" section prepared by Kriss Lai. . VTE Core Measure Inpt VTE Proph given/why not?: SCD's [place] Drug Monitoring Program Search Results: no issues identified
[2016-08-17 12:00] VITALS: BP 165/117; PULSE 80; TEMP 37; O2SAT 94
[2016-08-17 13:18] VITALS: BP 154/97; PULSE 84
[2016-08-17 14:04] VITALS: BP 154/97; PULSE 84; TEMP 37; O2SAT 94
[2016-08-17] MEDS ORDERED: CLIN300C10 PO (14:09)
--- NOTE | 2016-08-17 14:27 | PROGRESS NOTE ---
DATE: 08/17/2016 PROGRESS NOTE AND DISCHARGE SUMMARY PROGRESS NOTE: The patient feels much better after the sinus surgery. She has had no bleeding and is able to tolerate diet. OBJECTIVE: NOSE: The nasal passages are patent with no sign of bleeding. IMPRESSION: Status post functional endoscopic sinus surgery with no complications. PLAN: To start her on clindamycin because the culture is starting to grow out Staphylococcus aureus, and she does have prescriptions for her blood pressure medicines from Dr. Del Rosario, her primary care doctor, which she will bead picker today and start. She is to see me next week in the office for followup. SUHAIL
--- NOTE | 2016-09-05 14:14 | DISCHARGE SUMMARY ---
ADMITTING DIAGNOSIS: Acute sinusitis with epistaxis. DISCHARGE DIAGNOSES: Same plus polyps and Staphylococcus aureus infection. HISTORY: A 25-year-old with acute onset of epistaxis and a large polyp hanging out at the right nostril, admitted for therapeutic intervention. HOSPITAL COURSE: The patient was taken to the operating room on Saturday, the day of the procedure. She underwent endoscopic sinus surgery without complications; however, her blood pressure was high postop and therefore the patient was admitted and observed overnight. Consultation was obtained with Radha Davis, the [facility] hospitalist. She is being followed by Dr. Del Rosario for her hypertension. She is discharged home on August 17 with a prescription for clindamycin and to fill her prescriptions for hypertensive medication from [facility] Del Rosario. She is to return for followup in my office next week.
== END 2016-08-17 14:55 | disposition home or self-care (01) ==
LOC: ENRESERVTM → ENRESERVDT → C.ACU 12:34 → C.MSW 15:59
PROVIDERS: ADMIT Otolaryngology; ATTEND Otolaryngology
DX: J32.9 Chronic sinusitis, unspecified (principal); J33.9 Nasal polyp, unspecified; R04.0 Epistaxis; I10 Essential (primary) hypertension; B95.61 Methicillin susceptible Staphylococcus aureus infection as the cause of diseases classified elsewhere; F17.200 Nicotine dependence, unspecified, uncomplicated

== ENCOUNTER → 2016-09-24 | Outpatient (CLI) | payer BC ==
[~2016-09-24] MED LIST changes: -CEFAZOLIN 2000 MG/60 ML D5W IV SCH; +CLIN300C10 PO; -LACTATED RINGER'S 1000ML 1,000 ML IV SCH; +NRV5 PO; -PRED50TA PO
== END | disposition home or self-care (01) ==
LOC: C.LABSPEC 16:24
PROVIDERS: ATTEND Dermatology
DX: L73.2 Hidradenitis suppurativa (principal)

== ENCOUNTER 2017-03-23 15:33 | Emergency (ER) | payer BC ==
[~2017-03-23] VITALS: Ht 170.2 cm; Wt 143.5 kg
[2017-03-23 15:48] VITALS: TEMP 36.8; Ht 170.2 cm; Wt 143.5 kg
[2017-03-23] MEDS ORDERED: NRV/5 PO (15:55)
[2017-03-23] MEDS ORDERED: ACET-1256 PO (15:55)
[2017-03-23] MEDS ORDERED: AMLODIPINE BESYLATE 5 MG TAB PO ONE (16:45)
[2017-03-23] MEDS ORDERED: HYDROCODONE/ACETAMOPHEN 5/325MG TAB PO ONE (16:45)
[2017-03-23 17:27] VITALS: O2SAT 99
--- NOTE | 2017-03-23 17:37 | DIAGNOSTIC IMAGING REPORT ---
LUMBAR SPINE MRI HISTORY: Lumbar back with L sided leg pain TECHNIQUE: Multiplanar multisequence MRI of the lumbar spine was performed without the use of contrast. COMPARISON: None. FINDINGS: For the purpose of the report the L5-S1 disc space will be located on axial image 30 of 34. Alignment and curvature are intact. No fractures identified. Moderate disc space narrowing at L3-L4 and L4-L5. Mild disc space narrowing at L5-S1. The conus terminates at the T12-L1 disc space. Mild left paraspinal edema seen from L3 through L5. This is of uncertain etiology and could be related to denervation injury. L1-L2: No significant central canal or neural foraminal narrowing. L2-L3: No significant central canal or neural foraminal narrowing. L3-L4: There is a large central disc extrusion which measures 2.5 x 1.5 x 1.0 cm. This demonstrates superior subligamentous migration. There may be an associated sequestered fragment. This results in severe central canal narrowing at the L3-L4 disc space level and posterior to the L3 vertebral body with compression of multiple nerve roots at these levels. The thecal sac measures a diameter of 4 mm. No significant neural foraminal narrowing. L4-L5: Small to moderate central/left paracentral broad-based posterior disc protrusion. This results in mild central canal narrowing and abuts the transiting left L5 nerve root. There is mild left-sided neural foraminal narrowing. L5-S1: Moderate sized left paracentral focal disc protrusion demonstrating mild inferior subligamentous migration. This measures 14 x 9 mm and abuts and displaces the transiting left S1 nerve root. There is mild left-sided neural foraminal narrowing and mild left-sided central canal narrowing. IMPRESSION: 1. Large central disc extrusion at L3-L4 with superior subligamentous migration. There may be an associated sequestered disc fragment. This results in severe central canal narrowing with compression of multiple nerve roots as described above. Urgent surgical consultation is recommended given the severe central canal narrowing and compression of multiple nerve roots. 2. Additional disc protrusions at L4-L5 and L5-S1 as described above. Electronically signed by: Hitesh Saucedo M.D. 03/23/2017 5:35 PM Dictated Date/Time: 03/23/2017 5:26 PM
[2017-03-23] MEDS ORDERED: DEXAMETHASONE INJ 10 MG in SYRINGE 0 ML IV ONE (18:00)
[2017-03-23] MEDS ORDERED: TRAMADOL HCL 50 MG HOME PACK PO ONE (18:15)
[2017-03-23] MEDS ORDERED: PRED20TA2 PO (18:18)
[2017-03-23] MEDS ORDERED: TRAM-10 PO (18:18)
[2017-03-23 18:33] VITALS: BP 168/120; PULSE 72
--- NOTE | 2017-03-23 22:02 | EMERGENCY ROOM VISIT NOTE ---
ED Visit Note First contact with patient: 16:01 Chief Complaint: Lower back pain. History of Present Illness: Ms. Maldonado is a 26-year-old white female who ambulates into the ED complaining of lumbar back pain. Historically patient reports she's had lumbar back pain in the past approximately 4-5 years ago had an MRI done of her lower back done locally was told she had a herniated disc. She was not referred for specialty treatment but was her scribed steroids and exercise therapy and had resolution of symptoms and reports she has had no complications since. Patient reports approximately one week ago she started developing mild lower back pain. Since that time her pain has gradually increased in intensity. She places her discomfort in the L3-L4 area. She describes her pain as a "pinching " sensation. Associated with her pain she reports she has a numbness sensation throughout the lower extremity. Her pain worsens with flexion and extension of the waist, sneezing and coughing. She currently rates her discomfort 7/10. She reports she's been using [id number] ibuprofen and acetaminophen without relief of her discomfort. Additionally she reports when she ambulates she feels like her left leg is going to "go out" on her. She denies fevers, chills, sweats, skin eruptions, skin color changes, recent direct or repetitive trauma, upper respiratory tract symptoms, shortness of breath, chest pain, abdominal pain, nausea, vomiting, diarrhea, constipation, rectal bleeding, black/tarry stools, urinary symptoms, hematuria, vaginal bleeding, vaginal discharge, bowel and bladder dysfunction, history of cancer, history of IV drug use. Additionally he was noted that the patient was hypertensive. When questioned she reports she ran out of her medication a couple weeks ago and has just stopped it without contacting her PCP. Review of Systems: As noted above in history of present illness. All body systems were reviewed and found to be negative as noted above. Past Medical History: As previously noted and hypertension, bronchitis, status post section Current Medications: Amlodipine, Tylenol. Allergies to Medications: Lisinopril. Social History: Patient is currently employed; she feels safe in her home environment; she admits to tobacco use and denies alcohol use. Physical Examination: Vital Signs: Date Time Temp Pulse Resp B/P (MAP) Pulse Ox O2 Delivery O2 Flow Rate FiO2 03/23/17 18:33 72 20 168/120 03/23/17 17:27 87 20 171/108 99 Room Air 03/23/17 15:48 36.8 91 20 202/137 98 Room Air GENERAL: 26-year-old female in mild to moderate distress due to pain, nontoxic- appearing, afebrile and hemodynamically stable. NEUROLOGICAL: Awake, alert and oriented to person, place and time. Answering questions appropriately and following commands. Normal gait. Good hand eye coordination. No focal motor or sensory deficits. SKIN: Warm, dry and pink. No soft tissue eruptions or trauma noted. HEENT: Atraumatic and normocephalic. BACK: No tenderness over the bony cervical and thoracic spine. Mild to moderate tenderness over the C3-C4 area of the bony spine without bony deformity , bony crepitus, swelling, ecchymosis or step-offs. Minimal tenderness throughout the local paraspinous muscles without spasm. Positive straight leg raise test. No CVA tenderness. THORAX: Lungs sounds are clear to auscultation and equal bilaterally with symmetrical chest wall. ABDOMEN: Obese, soft and nontender. Positive bowel sounds in all quadrants. No guarding, rigidity or organomegaly. EXTREMITIES: Moves all extremities well on command and with purpose. All distal neurovascular statuses are intact and equal bilaterally. No calf tenderness or cords. Lower Extremities: 4/5 muscle strength in all movements of the hips, knees, ankles and feet. Able to distinguish light sensations through all dermatomes of the feet. Patellar and Achilles deep tendon reflexes are 2+. ED Course: Patient is assessed as noted above. Patient's medication list was reviewed. Patient was given [place] 5/325 mg tablet by mouth and 10 mg of amlodipine by mouth for her blood pressure. Lumbar Spine MRI: Was reviewed by myself and read by the radiologist showing a large central disc extrusion at L3-L4 or with superior sub-ligament margin resulting in severe central canal narrowing with compression of multiple nerve roots. Patient's case was reviewed with ; we agreed on diagnostic approach , treatment, disposition and plan. Patient's case was reviewed with Dr. Haas, with a orthopedic wildfire prevention specialist; he recommended that the patient IV steroids while in the ED tonight and be discharged home with bed rest, Ultram and high-dose steroids. He also requested that she call the office after the holiday for office follow-up. An IV lock was initiated and patient received 10 mg of Decadron IV. Patient was educated about today's findings and instructed on her treatment plan ; she verbalized understanding and agreement with this plan. Clinical Impression: Acute lumbar back pain with left-sided radiculopathy. Decision-Making: Initially my differential diagnosis I considered lumbar strain , herniated disc, discitis, sciatica and other causes. Patient's blood pressure: Elevated because of medication noncompliance. Blood pressure disposition: Patient was treated in the emergency department and encouraged to follow-up with primary care provider. Disposition: Patient discharged home in stable condition; prior to departure she was reassessed and subjectively reported she was feeling better and rated her discomfort 3/10. Plan: Patient was prescribed 50 mg of Ultram every 6 hours as needed for pain. Patient was placed on 60 mg of prednisone once a day for 5 days. Patient is instructed to use bed rest until followed up with product delivery specialist. Patient was encouraged to use a walker during ambulation. Patient was encouraged to follow-up with Dr. Willingham for definitive care and treatment. Patient was encouraged return to the ED for worsening/uncontrolled pain, worsening numbness or weakness of the left lower leg, abdominal pain, fevers or any new/concerning symptoms.
== END 2017-03-23 18:40 | disposition home or self-care (01) ==
LOC: C.EDB 15:33 → C.EDD 18:40
DX: M51.16 Intervertebral disc disorders with radiculopathy, lumbar region (principal); I10 Essential (primary) hypertension; F17.200 Nicotine dependence, unspecified, uncomplicated

== ENCOUNTER 2022-11-05 05:30 | Inpatient (IN) ==
--- NOTE | 2022-09-07 12:29 | PAT Medication Instructions ---
Medication Instructions Date of Service September 07, 2022 Home Medications nifedipine 30 mg tablet,extended release 60 mg PO QAM vits no.129-ferrous fum 27 mg iron-folic acid 800 mcg tablet ( One Daily) 1 tab PO QAM aspirin 81 mg tablet,delayed release (Adult Low Dose Aspirin) 81 mg PO DAILY insulin aspart U-100 100 unit/mL subcutaneous solution (Novolog U-100 Insulin aspart) 1 sliding scale dose subcut USEASDIRECTD insulin glargine-yfgn 100 unit/mL (3 mL) subcutaneous pen (Semglee (insulin glargine-yfgn) Pen) 42 unit subcut QPM ASK your prescriber and surgeon aspirin 81 mg tablet,delayed release (Adult Low Dose Aspirin) 81 mg PO DAILY DO NOT take the morning of surgery vits no.129-ferrous fum 27 mg iron-folic acid 800 mcg tablet ( One Daily) 1 tab PO QAM insulin aspart U-100 100 unit/mL subcutaneous solution (Novolog U-100 Insulin aspart) 1 sliding scale dose subcut USEASDIRECTD Take morning of surgery With a small sip of water, OTHERWISE NOTHING TO EAT OR DRINK AFTER MIDNIGHT: nifedipine 30 mg tablet,extended release 60 mg PO QAM Take evening before surgery insulin glargine-yfgn 100 unit/mL (3 mL) subcutaneous pen (Semglee (insulin glargine-yfgn) Pen) 42 unit subcut QPM Other Notes If you have any questions please call us at [phone] or [phone] or [phone] or [phone]
--- NOTE | 2022-09-17 15:37 | Anesthesiology Consultation ---
Date of Service September 17, 2022 Assessment & Plan (1) Encounter for pre-operative examination: - COVID screening: Per assessment on 09/17: No known COVID-19 positive contacts or current COVID-19 related symptoms. Travel screen negative. Patient vaccinated. At surgeon discretion if preop Covid testing being done. - S/P (09/19/2011): Attempted SAB for 45 minutes. Unable to gain CSF despite multiple SAB needles. Discussed with OB. Decision made to convert to GETA. ETT on first attempt with Jamison #2, ETT obstructed. ETT changed. Sats less than 90% for approximately 10 seconds. Always greater than 85%. Extubated without complications. Chart Review Chart Review: Acceptable Risk for Surgery and Patient seen in Pre Admission Testing Teaching & Discussion Pre-Anesthesia Teaching/Discussion Notes: Instructed NPO after midnight before surgery,except medications with 15 cc of water. Medication instructions provided according to the PAT guidelines. History Surgery Operation Date: 11/05/22 10:05 Proposed Procedures p Section in LD (Delivery of Baby Through Abdominal Incision) - Power Flanagan MD s Post Bilateral Tubal Ligation Labor & Deliv - Power Flanagan MD Height/Weight Height: 5 ft 7 in Weight: 156.1 kg Allergies Allergy/AdvReac Type Severity Reaction Status Date / Time lisinopril AdvReac Mild COUGH Verified 09/17/22 16:28 Medications Home Medications Medication Instructions Recorded Confirmed Last Taken nifedipine 30 mg tablet,extended 60 mg PO QAM 04/27/22 09/17/22 Unknown release blood sugar diagnostic (OneTouch 06/14/22 09/17/22 Unknown Verio test strips) flash glucose sensor (FreeStyle 06/14/22 09/17/22 Unknown Radha 2 Sensor kit) lancets 33 gauge (OneTouch Delica 06/14/22 09/17/22 Unknown Plus Lancet) pen needle, diabetic 29 gauge x 06/14/22 09/17/22 Unknown 1/2" (Advocate Pen Needle) vits no.129-ferrous fum 1 tab PO QAM 06/14/22 09/17/22 Unknown 27 mg iron-folic acid 800 mcg tablet ( One Daily) aspirin 81 mg tablet,delayed 81 mg PO DAILY 08/06/22 09/17/22 Unknown release (Adult Low Dose Aspirin) insulin aspart U-100 100 unit/mL 1 sliding scale dose subcut 09/07/22 09/17/22 Unknown subcutaneous solution (Novolog USEASDIRECTD U-100 Insulin aspart) insulin glargine-yfgn 100 unit/mL 42 unit subcut QPM 09/07/22 09/17/22 Unknown (3 mL) subcutaneous pen (Semglee (insulin glargine-yfgn) Pen) Past Medical History Medical History HTN (hypertension) Sleep apnea No device Type 2 diabetes mellitus affecting , antepartum IDDM Past Family History Family History Other Diabetes Past Surgical History Surgical History History of sinus surgery polyp removed Hx of section (09/19/2011): Attempted SAB for 45 minutes. Unable to gain CSF despite multiple SAB needles. Discussed with OB. Decision made to convert to GETA. ETT on first attempt with Jamison #2, ETT obstructed. ETT changed. Sats less than 90% for approximately 10 seconds. Always greater than 85%. Extubated without complications. S/P wisdom tooth extraction Social History Smoking Status: Current every day smoker tobacco type: cigarettes Smoking cigarettes per day: 10-15 per day Do You Dip or Chew Tobacco: No Hx Alcohol Use: No Hx Substance Use: No substance use type: does not use Physical Exam Vital Signs VITALS BP 132/85 P 90 TEMP 99.3 SP02 96%RA RESP 16 PHYSICAL Full cervical extension range of motion. Full TMJ range of motion. TMD 4 finger breaths Mallampati Score 2 Dentition: intact Lungs: clear throughout to auscultation Cardiac: regular rate and rhythm, no murmurs noted Spine: normal Extremities: non-pitting LE edema Lab Results Anesthesia Preop Results Results Anesthesia Widget: WBC 10.96 K/ul (4.8-10.8) H 09/17/22 Hgb 13.0 g/dl (12.0-16.0) 09/17/22 Hct 37.0 % (37.0-47.0) 09/17/22 Plt 254 K/uL (130-400) 09/17/22 Na 136 mmol/L (136-145) 09/17/22 K 3.7 mmol/L (3.5-5.1) 09/17/22 Cl 106 mmol/L (98-107) 09/17/22 CO2 22 mmol/L (21-32) 09/17/22 BUN 9 mg/dl (6-23) 09/17/22 Creat 0.53 mg/dl (0.6-1.2) L 09/17/22 Glucose Level 75 mg/dl (70-99(Fasting)) 09/17/22 HA1c 5.6 % (4.5-5.6) 09/17/22 Urine Color Yellow 09/03/22 Urine Appearance Clear (Clear) 09/03/22 Urine pH 6.5 (4.5-7.5) 09/03/22 Urine Specific [place] 1.022 (1.000-1.030) 09/03/22 Urine Protein Negative (Negative) 09/03/22 Urine Glucose (UA) Trace (Negative) H 09/03/22 Urine Ketones Negative (Negative) 09/03/22 Urine Blood Negative (Negative) 09/03/22 Urine Nitrite Negative (Negative) 09/03/22 Urine Bilirubin Negative (Negative) 09/03/22 Urine Urobilinogen Negative (Negative) 09/03/22 Urine Leukocyte Esterase Negative (Negative) 09/03/22 Blood Type O Positive 09/17/22 Antibody Screen NEGATIVE 09/17/22
[2022-11-05] MEDS ORDERED: SODIUM CHLORIDE 0.9% 250 ML IV PRN ×2 (05:36→06:25)
[2022-11-05] MEDS ORDERED: LACTATED RINGER'S 1,000 ML IV SCH (06:00)
[2022-11-05] MEDS ORDERED: ceFAZolin 3,000 MG in DEXTROSE 5% 50 ML IV SCH (06:00)
[2022-11-05] MEDS ORDERED: CITRIC ACID/SODIUM CITRATE 15 ML UDC PO SCH (06:00)
[2022-11-05 06:25] LABS: Hematocrit (blood only) 38.5 % (37.0-47.0); Hemoglobin 13.3 g/dl (12.0-16.0); Mean Corpuscular Hgb Conc 34.5 g/dL (32.0-36.0); Mean Corpuscular Volume 86.7 fL (80.0-100.0); Mean Platelet Volume 11.6 fL (9.4-12.4); Platelet Count 209 K/uL (130-400); RDW Coefficient of Variation 12.6 % (11.5-14.5); RDW Standard Deviation 39.7 fL (36.4-46.3); Red Blood Count 4.44 M/uL (4.20-5.40); White Blood Count 10.83 K/ul (4.8-10.8)
[2022-11-05] MEDS ORDERED: PHENYLEPHRINE HCL 10 MG/ML VIAL ONE (06:57)
[2022-11-05] MEDS ORDERED: KETOROLAC 30 MG/ML VIAL ONE (06:57)
[2022-11-05] MEDS ORDERED: OXYTOCIN 10 UNITS/ML VIAL ONE (06:57)
[2022-11-05] MEDS ORDERED: MoRPHine SULFATE PF 1 MG/ML 10 ML AMP/VIAL ONE (06:57)
[2022-11-05] MEDS ORDERED: fentaNYL citrate PF 100 MCG/2 ML VIAL ONE (06:57)
[2022-11-05] MEDS ORDERED: ONDANSETRON INJ 2 MG/ML 2 ML VIAL ONE (06:57)
--- NOTE | 2022-11-05 07:20 | History & Physical Report ---
Date of Service November 05, 2022 Assessment & Plan (1) Chronic hypertension affecting : Plan: 31yo at 37 weeks GA presents for repeat with BTL. 1. Fetus: Cat 1 2. Delivery: Repeat with BTL. Consents signed 3. GBS positive 3. cHTN BPs elevated this am. Denies PIH symptoms. Labs pending (2) Previous delivery affecting , antepartum: (3) Type 2 diabetes mellitus affecting , antepartum: (4) Obesity affecting , antepartum: (5) Carrier of group B Streptococcus: (6) Hx of section: Admission and Anticipated Discharge Date Admission Date: November 05, 2022 History of Present Illness Primary Care Provider: Cherelle Del Rosario DO 31yo at 37 weeks GA presents for repeat with BTL. Patient has complicated hx per below. [address] [facility] [address] [place] [address] Obstetrics Visit Signed Patient:LINDSEY SIMPSON Service Date:10/31/22 MR#:[id number] Ref Phy:Power Parson MD Acct ID:[id number] Gina Phy:Cherelle Del Rosario DO Date:1990 Location:[facility] cc: Power Parson MD~ *NOTICE TO RECEIVING [facility]/AGENCY This information is strictly Confidential and protected under [place] law. [place] law prohibits you from making any further disclosure of this information unless further disclosure is expressly permitted by the written consent of the person to whom it pertains or is authorized by law. A general authorization for the release of medical or ot her information is not sufficient for this purpose. Physician Practice accepts no responsibility if the information is made available to any other person, INCLUDING THE PATIENT. Medical Floor Coverings Salesperson Floor Coverings Salesperson Determination Visit Includes a Sensitive Exam of the Pt/Pt Requested: No Pt Informed of [facility]'s Recommendation for a Medical Floor Coverings Salesperson: No Visit SERGE Calculator Estimated Delivery Date Method Current WG Current Estimate 11/26/22 LMP (Certain) 36w 2d LMP: 02/19/22 : 2 Full term: 1 Premature: 0 Total Number of Induced Abortions: 0 Total Number of Spontaneous Abortions: 0 Ectopics: 0 Multiple births: 0 Number of Living Children: 1 and Delivery Plans DM ProtocolOn Insulin, managed by PCP *Baby ASA daily, start 12-28wks, continue until del *Ophthalmology consult *Dietary consult *Q monthly urine cultures * [id number] - WNL *Twice weekly NST's @32 *Serial Growth US starting 28wks *Baseline 24hr Urine and Q trimester *EKG (Cardio [id number]) *Baseline AIC *Deliver by [facility] Prior Section affecting C/S WITH TUBAL SCHEDULED FOR 11/05/[address] PARSON AND DR. MENCHACA ASSIST Obesity (BMI 40 and higher @ beginning of ) *Growth US @ 32wks *Weekly NSTs @ 34wks *BMI 50 or greater scheduled detailed/level II anatomy at [facility] [employer] [facility] (07/17/22) CHTN *Baby ASA daily start 12-28 wks, continue until delivery *wkly NST's @32wks and twice wkly @36 wks *Serial Growth US @ 24 (doppler only if abnml) *Baseline 24hr urine (additioinal PRN) *weekly DELANO's @ 32wk(if on meds) *Deliver [id number] On Nifedipine 60 mg PO OD OB Labs: Blood Type O Positive 09/17/22 Antibody Screen NEGATIVE 09/17/22 Hemoglobin 14.5 g/dl (12.0-16.0) 10/23/22 Hematocrit 41.8 % (37.0-47.0) 10/23/22 Mean Corpuscular Volume 86.4 fL (80.0-100.0) 10/23/22 Platelet Count 211 K/uL (130-400) 10/23/22 Rubella IgG Antibody Equivocal (Immune) L 04/30/22 Rapid Plasma Reagin Nonreactive (Nonreactive) 04/30/22 Hepatitis B Surface Antigen. NON-REACTIVE (NON-REACTIVE) 04/30/22 Hepatitis C Antibody (EIA) NON-REACTIVE (NON-REACTIVE) 04/30/22 HIV (1&2) Ag and Ab Confirmation NON-REACTIVE (NON-REACTIVE) 04/30/22 OB Optional Labs: Chlamydia trachomatis RNA Not Detected (NotDetected) 04/30/22 Neisseria gonorrhoeae RNA Not Detected (NotDetected) 04/30/22 Labs Reviewed: Declines genetics--mln Allergies Allergy/AdvReac Type Severity Reaction Status Date / Time lisinopril AdvReac Mild COUGH Verified 10/31/22 08:43 Home Medications Medication Instructions Recorded Confirmed Type nifedipine 30 mg tablet,extended 60 mg PO QAM 04/27/22 11/05/22 History release blood sugar diagnostic (OneTouch 06/14/22 10/31/22 History Verio test strips) flash glucose sensor (FreeStyle 06/14/22 10/31/22 History Radha 2 Sensor kit) lancets 33 gauge (OneTouch Delica 06/14/22 10/31/22 History Plus Lancet) pen needle, diabetic 29 gauge x 06/14/22 10/31/22 History 1/2" (Advocate Pen Needle) vits no.129-ferrous fum 1 tab PO QAM 06/14/22 11/05/22 History 27 mg iron-folic acid 800 mcg tablet ( One Daily) aspirin 81 mg tablet,delayed 81 mg PO DAILY 08/06/22 11/05/22 History release (Adult Low Dose Aspirin) insulin aspart U-100 100 unit/mL 1 sliding scale dose subcut 09/07/22 10/31/22 History subcutaneous solution (Novolog USEASDIRECTD U-100 Insulin aspart) insulin glargine-yfgn 100 unit/mL 54 unit subcut QPM 09/07/22 11/05/22 History (3 mL) subcutaneous pen (Semglee (insulin glargine-yfgn) Pen) Patient History Medical History HTN (hypertension) Sleep apnea No device Type 2 diabetes mellitus affecting , antepartum IDDM Surgical History History of sinus surgery polyp removed Hx of section (09/19/2011): Attempted SAB for 45 minutes. Unable to gain CSF despite multiple SAB needles. Discussed with OB. Decision made to convert to GETA. ETT on first attempt with Shaheen #2, ETT obstructed. ETT changed. Sats less than 90% for approximately 10 seconds. Always greater than 85%. Extubated without complications. S/P wisdom tooth extraction Family History Other Diabetes Social History Smoking Status: Current every day smoker Cigarettes Per Day: 10-15 per day; Second Hand Exposure: No; Do You Dip or Chew Tobacco: No; Tobacco Cessation Education Requested by Patient: No Hx Alcohol Use: No Hx Substance Use: No Preferred Language: Czech Communication Ability: Effective Plastic Production Machine Setter Required: No Beliefs That Will Affect Care: None marital status: marital status details: Jeremy (35) [phone] Current Living Situation: Spouse Current Living Situation Comment: lives with spouse, daughter, step son, current occupational status: employed 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 Other Information That Helps Us Care for You: No Feels Safe at Home: Yes Safety Concerns: Feels Safe At This Time Assistive Devices: None Physical Exam Genitourinary: OB Exam Monitor Tracing: + external FHT monitor used, + external uterine monitor used, + category I and + normal FHT variability Results & Data Vital Signs (Past 12 Hours) Vital Signs Temp Pulse Resp BP 11/05/22 07:12 86 169/88 H 11/05/22 05:47 100 H 168/84 H 11/05/22 05:37 37 C 18 Coding Level of Care Code None Diagnoses Chronic hypertension affecting O10.919 Previous delivery affecting , antepartum O34.219 Type 2 diabetes mellitus affecting , antepartum O24.119 Obesity affecting , antepartum O99.210 Carrier of group B Streptococcus Z22.330 Hx of section Z98.891
[2022-11-05] MEDS ORDERED: KETOROLAC 30 MG/ML VIAL IV PRN (08:04)
[2022-11-05] MEDS ORDERED: PROMETHAZINE HCL 6.25 MG in SODIUM CHLORIDE 0.9% 50 ML IV PRN (08:04)
[2022-11-05] MEDS ORDERED: NALOXONE HCL 1 MG in SODIUM CHLORIDE 0.9% 1000ML 1,000 ML IV PRN (08:04)
[2022-11-05] MEDS ORDERED: HYDROmorphone INJ 0.5 MG/0.5 ML SYR IV PRN (08:04)
[2022-11-05] MEDS ORDERED: NALBUPHINE HCL INJ 10 MG/ML AMP IV PRN (08:04)
[2022-11-05] MEDS ORDERED: ACETAMINOPHEN 1,000 MG/100 ML VIAL IV PRN (08:04)
[2022-11-05] MEDS ORDERED: ONDANSETRON INJ 2 MG/ML 2 ML VIAL IV PRN (08:04)
[2022-11-05] MEDS ORDERED: NALOXONE HCL 0.4 MG/1 ML VIAL/CARP IV PRN (08:04)
[2022-11-05] MEDS ORDERED: NALOXONE HCL 0.08 MG in SYRINGE 1.8 ML IV PRN (08:04)
[2022-11-05] MEDS ORDERED: LACTATED RINGER'S 500 ML IV PRN (08:04)
[2022-11-05] MEDS ORDERED: MoRPHine SULFATE PF 1 MG/ML 10 ML AMP/VIAL INT SPINAL ONE (08:04)
[2022-11-05] MEDS ORDERED: diphenhydrAMINE 50 MG/ML VIAL IV PRN (08:04)
[2022-11-05] MEDS ORDERED: ePHEDrine sulfate 50 MG/ML AMP IV PRN (08:04)
[2022-11-05] MEDS ORDERED: NO NARCOTICS OR SEDATIVES SCH (08:15)
[2022-11-05] MEDS ORDERED: SODIUM CHLORIDE 0.9% 1000ML 1,000 ML IV SCH (08:15)
[2022-11-05] MEDS ORDERED: DC INTRASPINAL MORPHINE SCH (08:15)
--- NOTE | 2022-11-05 09:18 | Operative Report ---
PG Post Operative Report Pre & Post Diagnosis Operation Date: 11/05/22 07:30 Pre-Op Diagnosis: Prior Caesarean Section;Chronic Hypertension;Type 2 Diabetes;Desires Sterilization Post-Op Diagnosis: Same;Delivery of a live baby girl at 0817 I identified the patient and participated in the time-out.: Yes Procedure Operation Date: 11/05/22 07:30 Actual Procedures p Section in LD (Delivery of Baby Through Abdominal Incision) - Power Flanagan MD s Post Bilateral Tubal Ligation Labor & Deliv - Power Flanagan MD Surgeon Power Flanagan MD [employer] [place]anco Estimated Blood Loss 600 Findings Consistent with Post-Op Diagnosis Specimens Left fallopian tube and portion of right fallopian tube Description of Procedure The patient was taken to the operating room after consents were ensured. Upon presentation, she was properly identified. Spinal anesthesia was obtained without difficulty. The patient was then prepped and draped in normal sterile fashion. Preprocedural timeout was performed. A Pfannenstiel incision was then made with a knife at the prior location. This was carried down to underlying fascia with the Bovie. The fascia was nicked at the midline with a knife and extended laterally with pickups and Wong scissors. The superior aspect of the fascia was grasped with Kochers x2, elevated off the underlying rectus muscles with blunt dissection and Wong scissors. Inferior aspect of the fascia was grasped with Kochers x2, elevated off the underlying rectus muscles using blunt dissection. The midline was then entered bluntly, placed on stretch to provide adequate room for delivery. The bladder blade was inserted. Bladder flap was created per standard fashion. A low transverse uterine incision was then made with a knife. The uterine cavity and amniotic cavity entered bluntly, placed on stretch to provide adequate room for delivery. Head of the delivered through the hysterotomy without difficulty, body and shoulders quickly followed. was noted to be vigorous soon after delivery.. Cord was then double clamped and cut. taken to the waiting nursery staff. Cord blood was obtained. Attention was then turned to delivery of the placenta, which was delivered intact, 3-vessel cord, with gentle cord traction and uterine massage. The uterus was then exteriorized, wrapped in a wet lap and several passes were made, removing any remaining membranes with a dry lap. The hysterotomy was then reapproximated with 0 Vicryl continuous running locked stitch. The tubal ligation was then performed with complete salpingectomy of the left fallopian tube and partial salpingectomy of the proximal right tube using the handheld LigaSure device. Hemostasis was noted at the completion of the tubal ligation. The hysterotomy was then reinspected and noted to have mild bleeding, which was then cauterized and pressure was applied and hemostasis was noted. The uterus was then returned to the maternal abdomen. The hemostasis was then noted. The muscles, subcutaneous and fascial layers were inspected to be hemostatic. The fascia was reapproximated with 0 Vicryl in continuous running stitch starting at each lateral apices and continued to the midline. The subcutaneous layers were reapproximated with 2-0 plain and continuous running stitch in 2 layers. The skin was reapproximated with 3-0 Vicryl with a subcuticular stitch. Needle, sponge, and instrument counts were correct at the completion of the case. Both mother and stable in the immediate post-delivery period. I attest to the content of the Intraoperative Record and any orders documented therein. Any exceptions are noted below.
[2022-11-05] MEDS ORDERED: DIPHTHERIA/TETANUS/PERTUSSIS Vaccine (Tdap, Age 7+yrs) 0.5mL SYR/VL IM ONE (09:41)
[2022-11-05] MEDS ORDERED: HYDROCORTISONE ACETATE 25 MG SUPP PR PRN (09:41)
[2022-11-05] MEDS ORDERED: SENNA 8.6 MG TAB PO PRN (09:41)
[2022-11-05] MEDS ORDERED: MAGNESIUM HYDROXIDE SUSP 30 ML UDC PO PRN (09:41)
[2022-11-05] MEDS ORDERED: BENZOCAINE 20% SPRY 85 APPLN/85 GM CAN EXT PRN (09:41)
[2022-11-05] MEDS ORDERED: GLUCOSE 40% GEL 15 GM TUBE PO PRN (10:51)
[2022-11-05] MEDS ORDERED: DEXTROSE 50% 50 ML SYRINGE IV PRN (10:51)
[2022-11-05] MEDS ORDERED: CARBOHYDRATES FOR HYPOGLYCEMIA PO PRN (10:51)
[2022-11-05] MEDS ORDERED: GLUCAGON FOR INJ 1 MG VIAL SQ PRN (10:51)
[2022-11-05] MEDS ORDERED: GLUCOSE 10 TAB/TUBE PO PRN (10:51)
--- NOTE | 2022-11-05 11:03 | Anesthesiology Progress Note ---
Date of Service November 05, 2022 Anesthesia Post Procedure Vital Signs Vital Signs: Temp Pulse Resp BP Pulse Ox O2 Del Method 11/05/22 10:20 20 11/05/22 10:10 18 Room Air 11/05/22 10:00 18 Room Air 11/05/22 09:50 18 Room Air 11/05/22 09:40 20 Room Air 11/05/22 09:30 20 Room Air 11/05/22 09:20 98.2 F 20 Room Air 11/05/22 10:59 68 134/79 11/05/22 10:58 73 91 11/05/22 10:57 71 97 11/05/22 10:52 68 94 11/05/22 10:49 65 141/74 H 11/05/22 10:47 65 94 11/05/22 10:42 68 95 11/05/22 10:39 63 136/80 11/05/22 10:37 69 95 11/05/22 10:32 63 94 11/05/22 10:29 99 H 135/69 11/05/22 10:27 74 96 11/05/22 10:22 67 95 11/05/22 10:19 57 L 143/72 H 11/05/22 10:17 67 96 11/05/22 10:12 72 98 11/05/22 10:07 65 96 11/05/22 10:08 65 144/71 H 11/05/22 10:02 79 96 11/05/22 10:01 67 94 11/05/22 09:57 69 115/56 L 94 11/05/22 09:55 68 94 11/05/22 09:52 63 96 11/05/22 09:47 67 116/64 98 11/05/22 09:42 67 96 11/05/22 09:37 69 114/57 L 98 11/05/22 09:35 72 92 11/05/22 09:32 70 96 11/05/22 09:27 78 98 11/05/22 09:28 77 116/60 11/05/22 09:22 79 98 11/05/22 09:17 82 126/78 98 11/05/22 07:10 20 11/05/22 07:10 98.1 F 20 11/05/22 07:12 86 169/88 H 11/05/22 05:47 100 H 168/84 H 11/05/22 05:37 98.6 F 18 Transfer of Care Handoff Completed per policy Notes Mental Status: alert / awake / arousable and participated in evaluation Patient Amnestic to Procedure: Yes Nausea / Vomiting: adequately controlled Pain: adequately controlled Airway Patency, RR, SpO2: stable & adequate BP & HR: stable & adequate Hydration State: stable & adequate Neuraxial Anesthesia: was administered and sensory block is resolving Anesthetic Complications: no major complications apparent and Pt Satisfied with anesthetic care
[2022-11-05] MEDS: LACTATED RINGER'S 1,000 ML IV SCH (11:22)
[2022-11-05] MEDS ORDERED: PHARMACY GLYCEMIC MGMT CONSULT PRN (11:29)
[2022-11-05] MEDS ORDERED: INSULIN ASPART PER UNIT CHARGE SC SCH (12:00)
[2022-11-05] MEDS: OXYTOCIN 20 UNITS in LACTATED RINGER'S 1,000 ML IV SCH ×2 (12:31→20:09)
[2022-11-05] MEDS: SIMETHICONE 80 MG CHEW PO SCH ×3 (12:32→20:59)
[2022-11-05] MEDS: INSULIN ASPART PER UNIT CHARGE SC SCH ×3 (12:54→21:10)
--- NOTE | 2022-11-05 13:33 | Consultation ---
Date of Consultation November 05, 2022 Assessment & Plan (1) S/P : (2) T2DM (type 2 diabetes mellitus): (3) HTN (hypertension): (4) HLD (hyperlipidemia): (5) Tobacco abuse: Plan This is a 31-year-old female who has significant past medical history of T2DM, HTN, HLD and morbid obesity who presented today for elective section and bilateral tubal ligation by Dr. Flanagan. Pt is s/p C section and b/l tubal ligation post care per OB T2DM a1c 6.2 05/2022 Previously treated with Jardiance 25 mg daily and weekly Ozempic injections prior to conception Currently on insulin regimen at home with Lantus 54 units daily with aspart 34 units before breakfast, 48 units before lunch, and 52 units before dinner She follows with glycemic MTM pharmacy through [facility] Currently inpatient pharmacy managing, appreciate their recommendation will follow blood sugars through hospital stay to determine appropriate discharge plan Hypertension continue nifedipine prior to conception on losartan - will defer this to PCP as OP HLD on statin prior to conception will need this re initated post with PCP Morbid obesity lifestyle/diet modifications BMI 55 Tobacco abuse cessation encouraged Thank you for this consultation. We will follow the patient with you during their hospital stay. You can reach a member of the [facility] Hospitalist Team 22/10 via hospitalist role on tiger text. Patient was seen and examined in collaboration with, Dr. Reece, please see addendum Supervising Physician Co-Signing Physician Notes I have seen and examined the patient and have discussed the case with the provider above. I agree with the assessment and plan as stated. 31 yo F was admitted for elective to a healthy baby girl who is at bedside. She is currently nauseous with one episode of emesis when presented with lunch. This is new and she is being provided antiemetics. We are being consulted for diabetic management. To that point, her blood glucose is currently at goal and so is her A1C per note above. Pharmacy was consulted and continues her on insulin here. Would continue per instruction from glycemic pharmacist through discharge and work [facility] outpatient MTM pharmacist to transition back to Ozempic post . On exam heart and lung exam was unremarkable prior to her episode of emesis. incision was closed without surrounding erythema or drainage and abdomen was soft and NTND. Defer to oil field equipment mechanic regarding cause of her vomiting. Thank you for this consultation. DO Chevy History of Present Illness Requesting Physician: Dr. Flanagan Reason for Consultation: Diabetic management Attending Physician: Power Flanagan MD History of Present Illness This is a 31-year-old female who has significant past medical history of T2DM, HTN, HLD and morbid obesity who presented today for elective section and bilateral tubal ligation by Dr. Flanagan. She tolerated the procedure well. EBL was 600 mL. She has a healthy baby girl bedside. We have been consulted for diabetes management while hospitalized. Prior to conception patient was being treated with Jardiance 25 mg daily as well as weekly Ozempic injections. After conception she was then placed on insulin and follow-up with glycemic pharmacy through [facility]. Her last A1c on 05/14/2022 was 6.2. Her blood sugars have been controlled per patient. She has been following a regimen of Lantus 54 units daily with aspart 3 times a day 34 units before breakfast, 48 units before lunch and 52 units before dinner. Postoperatively she has no acute concerns and is just tired. She states her nerve block is starting to wear off. She denies any fever, chills, sweats, lightheadedness, dizziness, chest pain, shortness of breath, nausea, vomiting. She further has history of hypertension which is currently being managed with nicardipine. Prior to conception she was on losartan. She is also on a daily baby aspirin due to history of hypertension. She is a current smoker and denies any regular alcohol use. She denies any illicit drug use. Allergies Allergy/AdvReac Type Severity Reaction Status Date / Time lisinopril AdvReac Mild COUGH Verified 10/31/22 08:43 Home Medications Medication Instructions Recorded Confirmed Type nifedipine 30 mg tablet,extended 60 mg PO QAM 04/27/22 11/05/22 History release blood sugar diagnostic (OneTouch 06/14/22 10/31/22 History Verio test strips) flash glucose sensor (FreeStyle 06/14/22 10/31/22 History Radha 2 Sensor kit) lancets 33 gauge (OneTouch Delica 06/14/22 10/31/22 History Plus Lancet) pen needle, diabetic 29 gauge x 06/14/22 10/31/22 History 1/2" (Advocate Pen Needle) vits no.129-ferrous fum 1 tab PO QAM 06/14/22 11/05/22 History 27 mg iron-folic acid 800 mcg tablet ( One Daily) aspirin 81 mg tablet,delayed 81 mg PO DAILY 08/06/22 11/05/22 History release (Adult Low Dose Aspirin) insulin aspart U-100 100 unit/mL 1 unit subcut USEASDIRECTD 09/07/22 11/05/22 History subcutaneous solution (Novolog U-100 Insulin aspart) insulin glargine-yfgn 100 unit/mL 54 unit subcut QPM 09/07/22 11/05/22 History (3 mL) subcutaneous pen (Semglee (insulin glargine-yfgn) Pen) Patient History Medical History HTN (hypertension) Sleep apnea No device Type 2 diabetes mellitus affecting , antepartum IDDM Surgical History History of sinus surgery polyp removed Hx of section (09/19/2011): Attempted SAB for 45 minutes. Unable to gain CSF despite multiple SAB needles. Discussed with OB. Decision made to convert to GETA. ETT on first attempt with Jamison #2, ETT obstructed. ETT changed. Sats less than 90% for approximately 10 seconds. Always greater than 85%. Extubated without complications. S/P wisdom tooth extraction Family History Other Diabetes Social History Smoking Status: Current every day smoker Cigarettes Per Day: 10-15 per day; Second Hand Exposure: No; Do You Dip or Chew Tobacco: No; Tobacco Cessation Education Requested by Patient: No Hx Alcohol Use: No Hx Substance Use: No Preferred Language: Tajik Communication Ability: Effective Solvent Plant Operator Required: No Beliefs That Will Affect Care: None marital status: marital status details: Jeremy [phone] Current Living Situation: Spouse Current Living Situation Comment: lives with spouse, daughter, step son, current occupational status: 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 Other Information That Helps Us Care for You: No Feels Safe at Home: Yes Safety Concerns: Feels Safe At This Time Assistive Devices: None Review of Systems Review of Systems: All systems reviewed & are unremarkable except as noted in HPI & below Physical Exam Physical Exam: Constitutional: WD/WN, morbidly obese, vitals as above, NAD, sitting up in bed, pleasant, conversing easily Head: Normocephalic, Atraumatic Eyes: PERRL, conjunctivae normal, anicteric sclerae ENMT: external ear and nose normal, oropharynx normal Neck: trachea midline, no thyromegaly normal visual inspection Respiratory: normal respiratory effort, lungs clear to auscultation, no wheeze, rales, rhonchi. Normal insp/exp effort, no accessory muscle use Cardiovascular: RRR, no murmur, no edema Vessels: no JVD or carotid bruit Chest: normal inspection of chest Abdomen: normal bowel sounds, abd dressing intact Musculoskeletal: no cyanosis or clubbing, arom x4, slugging lower ext in setting of block Skin: no rashes, warm and dry normal turgor Neurologic: no face palsy, no dysarthria CN's II-XI intact bilaterally and moves all extremities Psychiatric: A+Ox3, euthymic affect : deferred Results & Data Vital Signs (Past 12 Hours) Vital Signs Temp Pulse Resp BP Pulse Ox O2 Del Method 11/05/22 11:20 20 Room Air 11/05/22 10:50 20 Room Air 11/05/22 10:20 20 11/05/22 10:10 18 Room Air 11/05/22 10:00 18 Room Air 11/05/22 09:50 18 Room Air 11/05/22 09:40 20 Room Air 11/05/22 09:30 20 Room Air 11/05/22 09:20 36.8 C 20 Room Air 11/05/22 11:19 68 117/68 11/05/22 11:17 94 11/05/22 11:17 69 11/05/22 11:17 63 92 11/05/22 11:12 68 90 11/05/22 11:09 76 131/77 11/05/22 11:07 79 95 11/05/22 11:06 69 92 11/05/22 11:02 71 92 11/05/22 10:59 68 134/79 11/05/22 10:58 73 91 11/05/22 10:57 71 97 11/05/22 10:52 68 94 11/05/22 10:49 65 141/74 H 11/05/22 10:47 65 94 11/05/22 10:42 68 95 11/05/22 10:39 63 136/80 11/05/22 10:37 69 95 11/05/22 10:32 63 94 11/05/22 10:29 99 H 135/69 11/05/22 10:27 74 96 11/05/22 10:22 67 95 11/05/22 10:19 57 L 143/72 H 11/05/22 10:17 67 96 11/05/22 10:12 72 98 11/05/22 10:07 65 96 11/05/22 10:08 65 144/71 H 11/05/22 10:02 79 96 11/05/22 10:01 67 94 11/05/22 09:57 69 115/56 L 94 11/05/22 09:55 68 94 11/05/22 09:52 63 96 11/05/22 09:47 67 116/64 98 11/05/22 09:42 67 96 11/05/22 09:37 69 114/57 L 98 11/05/22 09:35 72 92 11/05/22 09:32 70 96 11/05/22 09:27 78 98 11/05/22 09:28 77 116/60 11/05/22 09:22 79 98 11/05/22 09:17 82 126/78 98 11/05/22 07:10 20 11/05/22 07:10 36.7 C 20 11/05/22 07:12 86 169/88 H 11/05/22 05:47 100 H 168/84 H 11/05/22 05:37 37 C 18 Laboratory Results Short CBC 11/05/22 Range/Units 05:59 WBC 10.83 H (4.8-10.8) K/ul Hgb 13.3 (12.0-16.0) g/dl Hct 38.5 (37.0-47.0) % Plt Count 209 (130-400) K/uL Medications Administered Current Inpatient Medications Benzocaine (Benzocaine 20% [place] 85 Appln/85 Gm Can) 1 appln EXT UD PRN PRN Reason: use on skin as needed Stop: 12/05/22 09:40 Bisacodyl (Bisacodyl 5 Mg Tabec) 5 mg PO 1999 [facility] Stop: 11/06/22 20:01 Bisacodyl (Bisacodyl 10 Mg Supp) 10 mg OR PRN PRN PRN Reason: Constipation Stop: 12/07/22 09:40 Dextrose (Dextrose 50% 50 Ml Syringe) 25 - 50 ml IV UD PRN; Protocol PRN Reason: Hypoglycemia Protocol Stop: 12/05/22 10:50 Diphenhydramine HCl (Diphenhydramine 50 Mg/Ml Vial) 25 mg IV Q6H PRN PRN Reason: Itching Stop: 11/06/22 02:04 Diphenhydramine HCl (Diphenhydramine Capsule 25 Mg Cap) 25 mg PO QID PRN PRN Reason: Itching Stop: 12/06/22 02:04 Diphenhydramine HCl (Diphenhydramine 50 Mg/Ml Vial) 25 mg IV QID PRN PRN Reason: Itching Stop: 12/06/22 02:04 Docusate Sodium (Docusate Sodium 100 Mg Cap) 100 mg PO DAILY@ [facility] Stop: 12/05/22 20:59 Ephedrine Sulfate (Ephedrine Sulfate 50 Mg/Ml Amp) 10 mg IV Q5M PRN PRN Reason: Hypotension Stop: 11/06/22 02:04 Ferrous Sulfate (Ferrous Sulfate 325 Mg Tab) 325 mg PO DAILY@ [facility] Stop: 12/06/22 07:59 Glucagon (Glucagon For Inj 1 Mg Vial) 1 mg SQ UD PRN; Protocol PRN Reason: Hypoglycemia Protocol Stop: 12/05/22 10:50 Glucose (Glucose 10 Tab/Tube) 4 - 8 tab PO UD PRN; Protocol PRN Reason: Hypoglycemia Treatment Stop: 12/05/22 10:50 Glucose (Glucose 40% Gel 15 Gm Tube) 15 - 30 gm PO UD PRN; Protocol PRN Reason: Hypoglycemia Protocol Stop: 12/05/22 10:50 Hydrocortisone (Hydrocortisone Acetate 25 Mg Supp) 25 mg OR BID PRN PRN Reason: Hemorrhoids Stop: 12/05/22 09:40 Hydromorphone HCl (Hydromorphone Inj 0.5 Mg/0.5 Ml Syr) 0.25 mg IV Q4H PRN PRN Reason: Breakthrough Surgical Pain Stop: 11/06/22 02:04 Cefazolin Sodium 3,000 mg/ (Dextrose) 72.5 mls @ 145 mls/hr IV PREOP [facility]; Protocol Stop: 11/05/22 14:00 Last Admin: 11/05/22 07:34 Dose: 145 mls/hr Sodium Chloride (Nss) 250 mls @ 15 mls/hr IV .[id number] PRN PRN Reason: For Transfusion Duration Stop: 11/05/22 15:37 Sodium Chloride (Nss) 250 mls @ 15 mls/hr IV .[id number] PRN PRN Reason: For Transfusion Duration Stop: 11/05/22 16:26 Sodium Chloride (Nss 1000ml) 1,000 mls @ 15 mls/hr IV .Q24H [place] Stop: 11/06/22 02:04 Promethazine HCl 6.25 mg/ (Sodium Chloride) 50.25 mls @ 204 mls/hr IV Q6H PRN PRN Reason: Nausea And Vomiting Stop: 11/06/22 02:04 Naloxone HCl 1 mg/ Sodium (Chloride) 1,002.5 mls @ 50 mls/hr IV .Q20H3M PRN PRN Reason: Nausea/Vomiting or Itching Stop: 11/06/22 02:04 Lactated Ringer's (Lr) 500 mls @ 999 mls/hr IV .Q31M PRN PRN Reason: Hypotension Stop: 11/06/22 02:04 Naloxone HCl 0.08 mg/ Syringe 2 mls @ 1 mls/min IV Q30M PRN; Protocol PRN Reason: Urinary Retention Stop: 11/06/22 02:04 Acetaminophen (Ofirmev) 1,000 mg in 100 mls @ 400 mls/hr IV Q8H PRN PRN Reason: pain Stop: 11/08/22 08:03 Lactated Ringer's (Lr) 1,000 mls @ 125 mls/hr IV .Q8H [place] Stop: 12/05/22 09:44 Last Admin: 11/05/22 11:22 Dose: 125 mls/hr Promethazine HCl 25 mg/ Sodium (Chloride) 51 mls @ 204 mls/hr IV Q4H PRN PRN Reason: Nausea And Vomiting Stop: 12/06/22 02:04 Oxytocin 20 units/ Lactated (Ringer's) 1,002 mls @ 125 mls/hr IV .Q8H1M [facility] Stop: 11/06/22 01:46 Last Admin: 11/05/22 12:31 Dose: 125 mls/hr Ibuprofen (Ibuprofen 600 Mg Tab) 600 mg PO Q4H PRN PRN Reason: Pain Stop: 12/05/22 09:40 Insulin Aspart (Insulin Aspart Per Unit Charge) 0 units SC ACHS [facility]; Protocol Stop: 12/05/22 11:29 Last Admin: 11/05/22 12:54 Dose: Not Given Ketorolac Tromethamine (Ketorolac 30 Mg/Ml Vial) 30 mg IV Q6H PRN PRN Reason: Breakthrough Surgical Pain Stop: 11/06/22 02:04 Ketorolac Tromethamine (Ketorolac 30 Mg/Ml Vial) 30 mg IV Q6H PRN PRN Reason: Pain Stop: 11/11/22 02:04 Magnesium Hydroxide (Magnesium Hydroxide Susp 30 Ml Udc) 30 ml PO HS PRN PRN Reason: Constipation Stop: 12/05/22 09:40 Miscellaneous (No Narcotics Or Sedatives) 1 each N/A UD [facility] Stop: 11/06/22 02:04 Miscellaneous (Carbohydrates For Hypoglycemia ) 15 - 30 gm PO UD PRN PRN Reason: Hypoglycemia Protocol Stop: 12/05/22 10:50 Miscellaneous Information (Dc Intraspinal Morphine) 1 each N/A UD [place] Stop: 11/06/22 02:04 Miscellaneous Information (Pharmacy Glycemic Mgmt Consult) 1 each N/A UD PRN; Protocol PRN Reason: Consult Stop: 12/05/22 11:28 Nalbuphine HCl (Nalbuphine Hcl Inj 10 Mg/Ml Amp) 5 mg IV Q10M PRN PRN Reason: Itching Stop: 11/06/22 02:04 Naloxone HCl (Naloxone Hcl 0.4 Mg/1 Ml Vial/Carp) 0.1 mg IV UD PRN PRN Reason: Respiratory Depression Stop: 11/06/22 02:04 Nystatin (Nystatin Powder 15gm Btl) 1 appln EXT BID [facility] Stop: 12/05/22 20:59 Ondansetron HCl (Ondansetron Inj 2 Mg/Ml 2 Ml Vial) 4 mg IV Q6H PRN PRN Reason: Nausea And Vomiting Stop: 11/06/22 02:04 Ondansetron HCl (Ondansetron Inj 2 Mg/Ml 2 Ml Vial) 4 mg IV Q4H PRN PRN Reason: Nausea And Vomiting Stop: 12/06/22 02:04 Oxycodone/Acetaminophen (Oxycodone/Acetaminophen 5mg/325mg Tab) 1 - 2 tab PO Q4H PRN PRN Reason: Pain Stop: 11/20/22 02:04 Prenat Multivit/[place]/Iron/Folic Ac ( Vitamin 1 Tab) 1 tab PO DAILY@08 [facility] Stop: 12/06/22 07:59 Sennosides (Senna 8.6 Mg Tab) 17.2 mg PO HS PRN PRN Reason: Constipation Stop: 12/05/22 09:40 Simethicone (Simethicone 80 Mg Chew) 80 mg PO DAILY@08,13,17,21 [facility] Stop: 12/05/22 12:59 Last Admin: 11/05/22 12:32 Dose: 80 mg
--- NOTE | 2022-11-05 13:51 | Pharmacy Report ---
Pharmacy Glycemic Short Note 2 - Date of Service November 05, 2022 - Glycemic Short BSG Results (Last 24 hours): 11/05/22 11/05/22 06:08 12:45 POC Glucose 104 H 76 OUTPATIENT ANTIDIABETIC REGIMEN: * Semglee 54 units SC HS * Novolog SC TIDM: 34 u w/ breakfast, 48 u w/ lunch, 52 u w/ dinner * HbA1c: 5.6% (09/17/22) ASSESSMENT: * 31 yo F admitted on 11/05/22 post-operatively following an elective section. Pharmacy has been consulted to assist with inpatient glycemic management. Patient is a controlled Type 2 diabetic as an outpatient. Please refer to outpatient regimen and most recent HbA1c above. * Patient did take full dose of Semglee last evening and is tolerating clear liquids as of now according to the RN. RN expects patient's diet to be advanced to carb consistent soon. * In most circumstances, post- diabetics do not require any basal insulin. BSG was 104 mg/dL pre-op and 76 mg/dL post-op. Will continue to hold basal insulin for now and monitor blood sugars throughout this evening. * Novolog will be started very conservatively for now. Lower goal range in post- patients is necessary. * Will likely go home on reduced insulin regimen, especially if breast feeding. PLAN FOR INPATIENT GLYCEMIC CONTROL: * Basal insulin * Hold * Bolus insulin * NovoLog per scale ACHS or Q6hrs while NPO * Goal Range: Low 80 mg/dL - High 120 mg/dL * Correction Factor: 25 mg/dL/unit * (no carb ratio for now)
[2022-11-05] MEDS: DOCUSATE SODIUM 100 MG CAP PO SCH (20:59)
[2022-11-05] MEDS: NYSTATIN POWDER 15GM BTL EXT SCH (23:54)
[2022-11-06] MEDS ORDERED: KETOROLAC 30 MG/ML VIAL IV PRN (02:05)
[2022-11-06] MEDS ORDERED: diphenhydrAMINE Capsule 25 MG CAP PO PRN (02:05)
[2022-11-06] MEDS ORDERED: PROMETHAZINE HCL 25 MG in SODIUM CHLORIDE 0.9% 50 ML IV PRN (02:05)
[2022-11-06] MEDS ORDERED: ONDANSETRON INJ 2 MG/ML 2 ML VIAL IV PRN (02:05)
[2022-11-06] MEDS ORDERED: diphenhydrAMINE 50 MG/ML VIAL IV PRN (02:05)
[2022-11-06] MEDS: IBUPROFEN 600 MG TAB PO PRN ×4 (05:43→23:02)
[2022-11-06] MEDS: oxyCODONE/ACETAMINOPHEN 5mg/325mg TAB PO PRN ×4 (05:44→23:02)
--- NOTE | 2022-11-06 06:04 | Obstetrical Progress Note ---
Date of Service <Jonathon Almaraz MD - Last Filed: 11/06/22 06:49> November 06, 2022 Assessment & Plan <Jonathon Almaraz MD - Last Filed: 11/06/22 06:49> (1) S/P : Plan Vital Signs reviewed and WNL. (Tmax at 37) Hemoglobin Reviewed. 13.3 (11/05/22) (today). Blood Type: O+, GBS+ (urine; no rectovaginal swab done) Rubella Immune Status Equivocal Pt is doing well clinically. Encourage Ambulation, Monitor and Control pain with Motrin PRN, Resume regular diet, Monitor Lochia Encourage Breast Feeding. <Jenny Zaidi MD - Last Filed: 11/06/22 08:02> (1) S/P : Subjective <Jonathon Almaraz MD - Last Filed: 11/06/22 06:49> Ambulation: limited ambulation (Briggs was in until 2 am, pt hasn't been walking around yet) Voiding: briggs catheter in place (was in place until 2 am) Passing Gas:: Yes Diet Tolerance:: nausea/vomiting (3 episodes of vomiting ) Lochia:: Small (occasional gushes) Feeding Type:: bottle feeding (formula) Current Pain Level(1-10): 4 (when moving or someone puts pressure on it) 31 yo F s/p C/S day 1 feeling some mild pain with movement around the incision site Constitutional: + fatigue; no fever, no chills or no insomnia Eyes: no diplopia Ear, Nose, Mouth, Throat: no ear pain, no sore throat or no pain with swallowing Respiratory: no dyspnea Cardiovascular: no chest pain or no palpitations Breast: no breast pain Gastrointestinal: + nausea and + vomiting; no bloating Musculoskeletal: no myalgia or no body aches Integumentary: + pruritus; no rash or no urticaria Neurologic: no tingling, no numbness or no headache(s) Physical Exam <Jonathon Almaraz MD - Last Filed: 11/06/22 06:49> Respiratory Auscultation: + wheezes (patient is a smoker, feels like this is her baseline) Cardiovascular RRR, no murmur, no edema Gastrointestinal (Abdomen) Inspection/Auscultation: normal bowel sounds and + abdominal surgical incision (mild erythema surrounding incision site) Results & Data <Jonathon Almaraz MD - Last Filed: 11/06/22 06:49> Vital Signs (Past 12 Hours) Vital Signs Temp Pulse Resp BP Pulse Ox O2 Del Method 11/06/22 03:42 36.7 C 69 14 132/84 93 Room Air 11/06/22 01:18 14 93 11/05/22 23:51 36.7 C 69 14 120/82 96 Room Air 11/06/22 00:25 14 93 11/05/22 23:00 16 93 11/05/22 22:10 16 91 11/05/22 21:30 14 94 11/05/22 20:30 14 96 11/05/22 19:39 16 96 11/05/22 19:39 36.7 C 68 16 141/87 H 96 Room Air 11/05/22 18:30 16 94 <Jenny Zaidi MD - Last Filed: 11/06/22 08:02> Co-Signing Physician Notes Resident Physician Supervision Note: I interviewed and examined the patient. Discussed with Dr. Almaraz and agree with findings and plan as documented in the note. Any exceptions or clarifications are listed here: [ ] Documented By: Jenny Zaidi MD, FACOG
[2022-11-06 07:03] LABS: Basophils # (auto) 0.04 K/uL (0-0.2); Basophils % (auto) 0.4 %; Eosinophils # (auto) 0.14 K/uL (0-0.50); Eosinophils % (auto) 1.5 %; Hematocrit (blood only) 32.3 % (37.0-47.0); Hemoglobin 11.1 g/dl (12.0-16.0); Immature Granulocytes # (auto) 0.03 K/uL (0.01-0.20); Immature Granulocytes % (auto) 0.3 %; Lymphocytes # (auto) 2.34 K/uL (1.2-3.4); Lymphocytes % (auto) 25.4 %; Mean Corpuscular Hemoglobin 29.8 pg (25.0-34.0); Mean Corpuscular Hgb Conc 34.4 g/dL (32.0-36.0); Mean Corpuscular Volume 86.6 fL (80.0-100.0); Mean Platelet Volume 11.3 fL (9.4-12.4); Monocytes % (auto) 6.5 %; Neutrophils # (auto) 6.07 K/uL (1.40-6.50); Neutrophils % (auto) 65.9 %; Platelet Count 174 K/uL (130-400); RDW Coefficient of Variation 12.7 % (11.5-14.5); RDW Standard Deviation 39.9 fL (36.4-46.3); Red Blood Count 3.73 M/uL (4.20-5.40); White Blood Count 9.22 K/ul (4.8-10.8)
[2022-11-06 07:42] LABS: Estimated Average Glucose 114 mg/dl; Hemoglobin A1C 5.6 % (4.5-5.6)
[2022-11-06] MEDS: INSULIN ASPART PER UNIT CHARGE SC SCH ×4 (09:05→20:11)
[2022-11-06] MEDS: SIMETHICONE 80 MG CHEW PO SCH ×4 (09:10→20:13)
[2022-11-06] MEDS: DOCUSATE SODIUM 100 MG CAP PO SCH ×2 (09:10→20:13)
[2022-11-06] MEDS: PRENATAL VITAMIN 1 TAB PO SCH (09:11)
[2022-11-06] MEDS: FERROUS SULFATE 325 MG TAB PO SCH (09:11)
--- NOTE | 2022-11-06 13:24 | Pharmacy Report ---
Pharmacy Glycemic Short Note 2 - Date of Service November 06, 2022 - Glycemic Short BSG Results (Last 24 hours): 11/05/22 11/05/22 11/06/22 17:13 20:46 07:35 POC Glucose 79 80 71 11/06/22 12:00 POC Glucose 112 H OUTPATIENT ANTIDIABETIC REGIMEN: * Semglee 54 units SC HS * Novolog SC TIDM: 34 u w/ breakfast, 48 u w/ lunch, 52 u w/ dinner * HbA1c: 5.6% (09/17/22) ASSESSMENT: 11/06/22: * BSGs ranging 76-104 mg/dL yesterday w/ fasting BSG of 71 mg/dL this morning * Continue to hold off on basal insulin and carb ratio. Correctional Novolog only at this time. 11/05/22: * 31 yo F admitted on 11/05/22 post-operatively following an elective section. Pharmacy has been consulted to assist with inpatient glycemic management. Patient is a controlled Type 2 diabetic as an outpatient. Please refer to outpatient regimen and most recent HbA1c above. * Patient did take full dose of Semglee last evening and is tolerating clear liquids as of now according to the RN. RN expects patient's diet to be advance d to carb consistent soon. * In most circumstances, post- diabetics do not require any basal insulin. BSG was 104 mg/dL pre-op and 76 mg/dL post-op. Will continue to hold basal insulin for now and monitor blood sugars throughout this evening. * Novolog will be started very conservatively for now. Lower goal range in post- patients is necessary. * Will likely go home on reduced insulin regimen, especially if breast feeding. PLAN FOR INPATIENT GLYCEMIC CONTROL: * Basal insulin * Hold * Bolus insulin * NovoLog per scale ACHS or Q6hrs while NPO * Goal Range: Low 80 mg/dL - High 120 mg/dL * Correction Factor: 25 mg/dL/unit * (no carb ratio for now)
[2022-11-06] MEDS: NYSTATIN POWDER 15GM BTL EXT SCH ×2 (13:25→20:14)
--- NOTE | 2022-11-06 17:03 | Hospitalist Progress Note ---
Date of Service November 06, 2022 Assessment & Plan (1) S/P : (2) T2DM (type 2 diabetes mellitus): (3) HTN (hypertension): (4) HLD (hyperlipidemia): (5) Tobacco abuse: Plan This is a 31-year-old female who has significant past medical history of T2DM, HTN, HLD and morbid obesity who presented today for elective section and bilateral tubal ligation by Dr. Flanagan. Pt is s/p C section and b/l tubal ligation post care per OB T2DM a1c 6.2 05/2022 Previously treated with Jardiance 25 mg daily and weekly Ozempic injections prior to conception Currently on insulin regimen at home with Lantus 54 units daily with aspart 34 units before breakfast, 48 units before lunch, and 52 units before dinner She follows with glycemic [facility]TM pharmacy through [facility] Currently inpatient pharmacy managing, appreciate their recommendation will follow blood sugars through hospital stay to determine appropriate discharge plan Has been on sliding scale insulin coverage in the hospital We will get recommendation on discharge from the glycemic pharmacist Hypertension continue nifedipine prior to conception on losartan - will defer this to PCP as OP Blood pressure remains stable HLD on statin prior to conception will need this re initated post with PCP Morbid obesity lifestyle/diet modifications BMI 55 Tobacco abuse cessation encouraged Likely discharge tomorrow by the primary Admission and Anticipated Discharge Date Admission Date: November 05, 2022 Subjective 11/06/2022 The patient was seen and examined in LEGAL COORDINATOR unit She is a status post delivery with type 2 diabetes on Ozempic as an outpatient Her blood sugar has been running normally He has been on sliding scale insulin coverage Denies any symptoms in the abdomen Review of Systems Review of Systems: All systems reviewed and are unremarkable except as noted below Physical Exam Physical Exam: Lying in bed comfortably Constitutional: well developed, well nourished, + ill appearing and + obese Eyes: PERRL, conjunctivae normal, anicteric sclerae ENMT: external ear and nose normal, oropharynx normal Neck: trachea midline, no thyromegaly Respiratory: no respiratory distress Auscultation: lungs clear to auscultation bilaterally Cardiovascular: Rate/Rhythm: regular rate and regular rhythm; not tachycardic Heart Sounds: normal S1 and normal S2; no murmur Extremities: + edema (Trace edema bilateral) Gastrointestinal (Abdomen): Inspection/Auscultation: + abdomen distended and normal bowel sounds Percussion/Palpation: + abdomen tender (Mildly tender) and abdomen soft Musculoskeletal: No acute arthritis involving any joint Neurologic: normal touch/pain/proprioception and moves all extremities; no focal motor deficits Psychiatric: A+Ox3, euthymic affect Lymphatic: no cervical or axillary lymphadenopathy Results & Data Results & Data Vital Signs (Past 12 Hours) Vital Signs Temp Pulse Resp BP Pulse Ox O2 Del Method 11/06/22 07:25 36.8 C 73 18 124/82 95 Room Air Laboratory Results Short CBC 11/06/22 Range/Units 06:49 WBC 9.22 (4.8-10.8) K/ul Hgb 11.1 L (12.0-16.0) g/dl Hct 32.3 L (37.0-47.0) % Plt Count 174 (130-400) K/uL Medications Administered Current Inpatient Medications Benzocaine (Benzocaine 20% [place] 85 Appln/85 Gm Can) 1 appln EXT UD PRN PRN Reason: use on skin as needed Stop: 12/05/22 09:40 Bisacodyl (Bisacodyl 5 Mg Tabec) 5 mg PO 1999 [facility] Stop: 11/06/22 20:01 Bisacodyl (Bisacodyl 10 Mg Supp) 10 mg IN PRN PRN PRN Reason: Constipation Stop: 12/07/22 09:40 Dextrose (Dextrose 50% 50 Ml Syringe) 25 - 50 ml IV UD PRN; Protocol PRN Reason: Hypoglycemia Protocol Stop: 12/05/22 10:50 Diphenhydramine HCl (Diphenhydramine Capsule 25 Mg Cap) 25 mg PO QID PRN PRN Reason: Itching Stop: 12/06/22 02:04 Diphenhydramine HCl (Diphenhydramine 50 Mg/Ml Vial) 25 mg IV QID PRN PRN Reason: Itching Stop: 12/06/22 02:04 Docusate Sodium (Docusate Sodium 100 Mg Cap) 100 mg PO DAILY@, [facility] Stop: 12/05/22 20:59 Last Admin: 11/06/22 09:10 Dose: 100 mg Ferrous Sulfate (Ferrous Sulfate 325 Mg Tab) 325 mg PO DAILY@ [facility] Stop: 12/06/22 07:59 Last Admin: 11/06/22 09:11 Dose: 325 mg Glucagon (Glucagon For Inj 1 Mg Vial) 1 mg SQ UD PRN; Protocol PRN Reason: Hypoglycemia Protocol Stop: 12/05/22 10:50 Glucose (Glucose 10 Tab/Tube) 4 - 8 tab PO UD PRN; Protocol PRN Reason: Hypoglycemia Treatment Stop: 12/05/22 10:50 Glucose (Glucose 40% Gel 15 Gm Tube) 15 - 30 gm PO UD PRN; Protocol PRN Reason: Hypoglycemia Protocol Stop: 12/05/22 10:50 Hydrocortisone (Hydrocortisone Acetate 25 Mg Supp) 25 mg IN BID PRN PRN Reason: Hemorrhoids Stop: 12/05/22 09:40 Acetaminophen (Ofirmev) 1,000 mg in 100 mls @ 400 mls/hr IV Q8H PRN PRN Reason: pain Stop: 11/08/22 08:03 Lactated Ringer's (Lr) 1,000 mls @ 125 mls/hr IV .Q8H [facility] Stop: 12/05/22 09:44 Last Admin: 11/05/22 11:22 Dose: 125 mls/hr Promethazine HCl 25 mg/ Sodium (Chloride) 51 mls @ 204 mls/hr IV Q4H PRN PRN Reason: Nausea And Vomiting Stop: 12/06/22 02:04 Ibuprofen (Ibuprofen 600 Mg Tab) 600 mg PO Q4H PRN PRN Reason: Pain Stop: 12/05/22 09:40 Last Admin: 11/06/22 12:08 Dose: 600 mg Insulin Aspart (Insulin Aspart Per Unit Charge) 0 units SC [facility]; Protocol Stop: 12/05/22 11:29 Last Admin: 11/06/22 12:05 Dose: Not Given Ketorolac Tromethamine (Ketorolac 30 Mg/Ml Vial) 30 mg IV Q6H PRN PRN Reason: Pain Stop: 11/11/22 02:04 Magnesium Hydroxide (Magnesium Hydroxide Susp 30 Ml Udc) 30 ml PO HS PRN PRN Reason: Constipation Stop: 12/05/22 09:40 Miscellaneous (Carbohydrates For Hypoglycemia ) 15 - 30 gm PO UD PRN PRN Reason: Hypoglycemia Protocol Stop: 12/05/22 10:50 Miscellaneous Information (Pharmacy Glycemic Mgmt Consult) 1 each N/A UD PRN; Protocol PRN Reason: Consult Stop: 12/05/22 11:28 Nystatin (Nystatin Powder 15gm Btl) 1 appln EXT BID [facility] Stop: 12/05/22 20:59 Last Admin: 11/06/22 13:25 Dose: 1 appln Ondansetron HCl (Ondansetron Inj 2 Mg/Ml 2 Ml Vial) 4 mg IV Q4H PRN PRN Reason: Nausea And Vomiting Stop: 12/06/22 02:04 Oxycodone/Acetaminophen (Oxycodone/Acetaminophen 5mg/325mg Tab) 1 - 2 tab PO Q4H PRN PRN Reason: Pain Stop: 11/20/22 02:04 Last Admin: 11/06/22 12:08 Dose: 1 tab Prenat Multivit/Peritoneal Dialysis Registered Nurse/Iron/Folic Ac ( Vitamin 1 Tab) 1 tab PO DAILY@08 [facility] Stop: 12/06/22 07:59 Last Admin: 11/06/22 09:11 Dose: 1 tab Sennosides (Senna 8.6 Mg Tab) 17.2 mg PO HS PRN PRN Reason: Constipation Stop: 12/05/22 09:40 Simethicone (Simethicone 80 Mg Chew) 80 mg PO DAILY@08,13,17,21 [facility] Stop: 12/05/22 12:59 Last Admin: 11/06/22 12:08 Dose: 80 mg
[2022-11-06] MEDS: LACTATED RINGER'S 1,000 ML IV SCH ×2 (19:45→19:46)
[2022-11-06] MEDS ORDERED: bisacodyL 5 MG TABEC PO SCH (20:00)
[2022-11-07] MEDS: LACTATED RINGER'S 1,000 ML IV SCH (05:50)
--- NOTE | 2022-11-07 06:00 | Obstetrical Progress Note ---
Date of Service <Jonathon lAmaraz MD - Last Filed: 11/07/22 07:31> November 07, 2022 Assessment & Plan <Jonathon Almaraz MD - Last Filed: 11/07/22 07:31> (1) S/P : Vital Signs reviewed and WNL. (Tmax at 37.2) Hemoglobin Reviewed. 11.1 (today). Blood Type: B+, GBS+, Rubella Immune Nonreactive. Pt is doing well clinically. Encourage Ambulation, Monitor and Control pain with Motrin PRN, Resume regular diet, Monitor Lochia Encourage Breast Feeding. (2) Status post bilateral salpingectomy: see above Plan This is a 31-year-old female who has significant past medical history of T2DM, HTN, HLD and morbid obesity who presented on 11/05 for elective section and bilateral tubal ligation by Dr. Flanagan. Pt is s/p C section and b/l tubal ligation post care per OB Likely discharge tomorrow by the primary <Andreina Diaz MD, FACOG - Last Filed: 11/07/22 08:35> (1) S/P : (2) Status post bilateral salpingectomy: Subjective <Jonathon Almaraz MD - Last Filed: 11/07/22 07:31> Ambulation: ambulating normally Voiding: no voiding problems and incontinence (had not had a BM since her C/S) Passing Gas:: Yes Diet Tolerance:: regular diet Lochia:: Small Feeding Type:: bottle feeding (formula) Current Pain Level(1-10): 6 (when moving about at left incision area) 31 yo F s/p day 2 C/S Constitutional: + fatigue; no fever, no chills or no insomnia Eyes: no diplopia Ear, Nose, Mouth, Throat: no ear pain, no sore throat or no pain with swallowing Respiratory: no dyspnea Cardiovascular: no chest pain or no palpitations Breast: no breast pain Gastrointestinal: no nausea or no vomiting Musculoskeletal: no myalgia or no body aches Integumentary: no rash, no pruritus or no urticaria Neurologic: no tingling, no numbness or no headache(s) Physical Exam <Jonathon Almaraz MD - Last Filed: 11/07/22 07:31> Respiratory Auscultation: + wheezes (patient is a smoker, feels like this is her baseline) Cardiovascular RRR, no murmur, no edema Gastrointestinal (Abdomen) Inspection/Auscultation: normal bowel sounds and + abdominal surgical incision (mild erythema surrounding incision site) Musculoskeletal Extremities: extremities normal to inspection (no calf pain tendeness) Results & Data <Jonathon Almaraz MD - Last Filed: 11/07/22 07:31> Vital Signs (Past 12 Hours) Vital Signs Temp Pulse Resp BP O2 Del Method 11/06/22 23:00 36.8 C 84 18 142/88 H Room Air 11/06/22 19:00 36.8 C 80 18 130/83 Room Air <Andreina Diaz MD, FACOG - Last Filed: 11/07/22 08:35> Co-Signing Physician Notes Resident Physician Supervision Note: I interviewed and examined the patient. Discussed with Dr. Almaraz and agree with findings and plan as documented in the note. Any exceptions or urbano fications are listed here: Ecchymosis rather than erythema on edge of pannus above the incision. no induration noted. Documented By: Andreina Diaz MD, FACOG
[2022-11-07] MEDS: oxyCODONE/ACETAMINOPHEN 5mg/325mg TAB PO PRN ×3 (06:16→15:00)
[2022-11-07] MEDS: IBUPROFEN 600 MG TAB PO PRN ×3 (06:16→15:00)
[2022-11-07 07:17] LABS: Hematocrit (blood only) 32.4 % (37.0-47.0); Hemoglobin 11.1 g/dl (12.0-16.0)
[2022-11-07] MEDS: INSULIN ASPART PER UNIT CHARGE SC SCH ×2 (08:20→12:13)
[2022-11-07] MEDS ORDERED: bisacodyL 10 MG SUPP PR PRN (09:41)
[2022-11-07] MEDS ORDERED: NIFEdipine EXTENDED REL 30 MG TABCR PO SCH (09:45)
[2022-11-07] MEDS: DOCUSATE SODIUM 100 MG CAP PO SCH (09:59)
[2022-11-07] MEDS: SIMETHICONE 80 MG CHEW PO SCH ×2 (09:59→15:00)
[2022-11-07] MEDS: PRENATAL VITAMIN 1 TAB PO SCH (10:00)
[2022-11-07] MEDS: FERROUS SULFATE 325 MG TAB PO SCH (10:00)
[2022-11-07] MEDS: NYSTATIN POWDER 15GM BTL EXT SCH (10:02)
--- NOTE | 2022-11-07 12:27 | Hospitalist Progress Note ---
Date of Service November 07, 2022 Assessment & Plan (1) S/P : (2) T2DM (type 2 diabetes mellitus): (3) HTN (hypertension): (4) HLD (hyperlipidemia): (5) Tobacco abuse: Plan This is a 31-year-old female who has significant past medical history of T2DM, HTN, HLD and morbid obesity who presented today for elective section and bilateral tubal ligation by Dr. Flanagan. Pt is s/p C section and b/l tubal ligation post care per OB T2DM a1c 6.2 05/2022 Previously treated with Jardiance 25 mg daily and weekly Ozempic injections prior to conception Currently on insulin regimen at home with Lantus 54 units daily with aspart 34 units before breakfast, 48 units before lunch, and 52 units before dinner She follows with glycemic [facility]TM pharmacy through [facility] Currently inpatient pharmacy managing, appreciate their recommendation will follow blood sugars through hospital stay to determine appropriate discharge plan Has been on sliding scale insulin coverage in the hospital We will get recommendation on discharge from the glycemic pharmacist Hemoglobin A1c is normal and blood sugar has been normal too She will not start any antidiabetic medications until being seen by her honest john rocket crew member as an outpatient Hypertension continue nifedipine prior to conception on losartan - will defer this to PCP as OP Blood pressure remains stable At the higher end at 156/90 but is expected to improve at home HLD on statin prior to conception will need this re initated post with PCP Morbid obesity lifestyle/diet modifications BMI 55 Tobacco abuse cessation encouraged Will be discharged by the primary No further recommendation regarding diabetes Admission and Anticipated Discharge Date Admission Date: November 05, 2022 Subjective 11/06/2022 The patient was seen and examined in TRIM MECHANIC unit She is a status post delivery with type 2 diabetes on Ozempic as an outpatient Her blood sugar has been running normally He has been on sliding scale insulin coverage Denies any symptoms in the abdomen 11/07/2022 The patient was seen and examined in TRIM MECHANIC unit She has been feeling better and her blood sugar has been running normal She will be discharged home this afternoon Review of Systems Review of Systems: All systems reviewed and are unremarkable except as noted below Physical Exam Physical Exam: Lying in bed comfortably Constitutional: well developed, well nourished, + ill appearing and + obese Eyes: PERRL, conjunctivae normal, anicteric sclerae ENMT: external ear and nose normal, oropharynx normal Neck: trachea midline, no thyromegaly Respiratory: no respiratory distress Auscultation: lungs clear to auscultation bilaterally Cardiovascular: Rate/Rhythm: regular rate and regular rhythm; not tachycardic Heart Sounds: normal S1 and normal S2; no murmur Extremities: + edema (Trace edema bilateral) Gastrointestinal (Abdomen): Inspection/Auscultation: + abdomen distended and normal bowel sounds Percussion/Palpation: + abdomen tender (Mildly tender) and abdomen soft Neurologic: normal touch/pain/proprioception and moves all extremities; no focal motor deficits Psychiatric: A+Ox3, euthymic affect Lymphatic: no cervical or axillary lymphadenopathy Results & Data Results & Data Vital Signs (Past 12 Hours) Vital Signs Temp Pulse Resp BP Pulse Ox O2 Del Method 11/07/22 11:44 78 156/90 H 11/07/22 08:40 36.8 C 76 18 153/99 H 95 11/07/22 07:50 36.8 C 76 18 153/99 H Room Air Laboratory Results Short CBC 11/07/22 Range/Units 06:53 Hgb 11.1 L (12.0-16.0) g/dl Hct 32.4 L (37.0-47.0) % Medications Administered Current Inpatient Medications Benzocaine (Benzocaine 20% [place] 85 Appln/85 Gm Can) 1 appln EXT UD PRN PRN Reason: use on skin as needed Stop: 12/05/22 09:40 Bisacodyl (Bisacodyl 10 Mg Supp) 10 mg DC PRN PRN PRN Reason: Constipation Stop: 12/07/22 09:40 Dextrose (Dextrose 50% 50 Ml Syringe) 25 - 50 ml IV UD PRN; Protocol PRN Reason: Hypoglycemia Protocol Stop: 12/05/22 10:50 Diphenhydramine HCl (Diphenhydramine Capsule 25 Mg Cap) 25 mg PO QID PRN PRN Reason: Itching Stop: 12/06/22 02:04 Diphenhydramine HCl (Diphenhydramine 50 Mg/Ml Vial) 25 mg IV QID PRN PRN Reason: Itching Stop: 12/06/22 02:04 Docusate Sodium (Docusate Sodium 100 Mg Cap) 100 mg PO DAILY@08, [facility] Stop: 12/05/22 20:59 Last Admin: 11/07/22 09:59 Dose: 100 mg Ferrous Sulfate (Ferrous Sulfate 325 Mg Tab) 325 mg PO DAILY@08 [facility] Stop: 12/06/22 07:59 Last Admin: 11/07/22 10:00 Dose: 325 mg Glucagon (Glucagon For Inj 1 Mg Vial) 1 mg SQ UD PRN; Protocol PRN Reason: Hypoglycemia Protocol Stop: 12/05/22 10:50 Glucose (Glucose 10 Tab/Tube) 4 - 8 tab PO UD PRN; Protocol PRN Reason: Hypoglycemia Treatment Stop: 12/05/22 10:50 Glucose (Glucose 40% Gel 15 Gm Tube) 15 - 30 gm PO UD PRN; Protocol PRN Reason: Hypoglycemia Protocol Stop: 12/05/22 10:50 Hydrocortisone (Hydrocortisone Acetate 25 Mg Supp) 25 mg DC BID PRN PRN Reason: Hemorrhoids Stop: 12/05/22 09:40 Acetaminophen (Ofirmev) 1,000 mg in 100 mls @ 400 mls/hr IV Q8H PRN PRN Reason: pain Stop: 11/08/22 08:03 Lactated Ringer's (Lr) 1,000 mls @ 125 mls/hr IV .Q8H [facility] Stop: 12/05/22 09:44 Last Admin: 11/07/22 05:50 Dose: Not Given Promethazine HCl 25 mg/ Sodium (Chloride) 51 mls @ 204 mls/hr IV Q4H PRN PRN Reason: Nausea And Vomiting Stop: 12/06/22 02:04 Ibuprofen (Ibuprofen 600 Mg Tab) 600 mg PO Q4H PRN PRN Reason: Pain Stop: 12/05/22 09:40 Last Admin: 11/07/22 09:59 Dose: 600 mg Insulin Aspart (Insulin Aspart Per Unit Charge) 0 units SC [facility]; Protocol Stop: 12/05/22 11:29 Last Admin: 11/07/22 12:13 Dose: Not Given Ketorolac Tromethamine (Ketorolac 30 Mg/Ml Vial) 30 mg IV Q6H PRN PRN Reason: Pain Stop: 11/11/22 02:04 Magnesium Hydroxide (Magnesium Hydroxide Susp 30 Ml Udc) 30 ml PO HS PRN PRN Reason: Constipation Stop: 12/05/22 09:40 Miscellaneous (Carbohydrates For Hypoglycemia ) 15 - 30 gm PO UD PRN PRN Reason: Hypoglycemia Protocol Stop: 12/05/22 10:50 Miscellaneous Information (Pharmacy Glycemic Mgmt Consult) 1 each N/A UD PRN; Protocol PRN Reason: Consult Stop: 12/05/22 11:28 Nifedipine (Nifedipine Extended Rel 30 Mg Tabcr) 60 mg PO QAM [facility] Stop: 12/07/22 09:44 Last Admin: 11/07/22 09:58 Dose: 60 mg Nystatin (Nystatin Powder 15gm Btl) 1 appln EXT BID [facility] Stop: 12/05/22 20:59 Last Admin: 11/07/22 10:02 Dose: 1 appln Ondansetron HCl (Ondansetron Inj 2 Mg/Ml 2 Ml Vial) 4 mg IV Q4H PRN PRN Reason: Nausea And Vomiting Stop: 12/06/22 02:04 Oxycodone/Acetaminophen (Oxycodone/Acetaminophen 5mg/325mg Tab) 1 - 2 tab PO Q4H PRN PRN Reason: Pain Stop: 11/20/22 02:04 Last Admin: 11/07/22 09:59 Dose: 2 tab Prenat Multivit/Leith/Iron/Folic Ac ( Vitamin 1 Tab) 1 tab PO DAILY@08 [facility] Stop: 12/06/22 07:59 Last Admin: 11/07/22 10:00 Dose: 1 tab Sennosides (Senna 8.6 Mg Tab) 17.2 mg PO HS PRN PRN Reason: Constipation Stop: 12/05/22 09:40 Simethicone (Simethicone 80 Mg Chew) 80 mg PO DAILY@08,13,17,21 [facility] Stop: 12/05/22 12:59 Last Admin: 11/07/22 09:59 Dose: 80 mg
--- NOTE | 2022-11-14 14:25 | Discharge Summary ---
Date of Service November 14, 2022 Admission HPI Per Admitting Provider 31yo at 37 weeks GA presents for repeat with BTL. Patient has complicated hx per below. [address] [facility] [address] [place] [address] Obstetrics Visit Signed Patient:LINDSEY SIMPSON Service Date:10/31/22 MR#:[id number] Ref Phy:Power Parson MD Acct ID:[id number] Gina Phy:Cherelle Del Rosario, Date:1990 Location:.OBN cc: Power Parson MD~ *NOTICE TO RECEIVING DEMOCRAT/AGENCY This information is strictly Confidential and protected under [place] law. [place] law prohibits you from making any further disclosure of this information unless further disclosure is expressly permitted by the written consent of the person to whom it pertains or is authorized by law. A general authorization for the release of medical or other information is not sufficient for this purpose. Physician Practice accepts no responsibility if the information is made available to any other person, INCLUDING THE PATIENT. Medical Manager Float Manager Float Determination Visit Includes a Sensitive Exam of the Pt/Pt Requested: No Pt Informed of [facility]'s Recommendation for a Medical Manager Float: No Visit SERGE Calculator Estimated Delivery Date Method Current Current Estimate 11/26/22 LMP (Certain) 36w 2d LMP: 02/19/22 : 2 Full term: 1 Premature: 0 Total Number of Induced Abortions: 0 Total Number of Spontaneous Abortions: 0 Ectopics: 0 Multiple births: 0 Number of Living Children: 1 and Delivery Plans DM ProtocolOn Insulin, managed by PCP *Baby ASA daily, start 12-28wks, continue until del *Ophthalmology consult *Dietary consult *Q monthly urine cultures * [id number] - WNL *Twice weekly NST's @32 *Serial Growth US starting 28wks *Baseline 24hr Urine and Q trimester *EKG (Cardio [id number]) *Baseline AIC *Deliver by [facility] Prior Section affecting C/S WITH TUBAL SCHEDULED FOR 11/05/[address] PARSON AND DR[address] MENCHACA ASSIST Obesity (BMI 40 and higher @ beginning of ) *Growth US @ 32wks *Weekly NSTs @ 34wks *BMI 50 or greater scheduled detailed/level II anatomy at [facility] (07/17/22) CHTN *Baby ASA daily start 12-28 wks, continue until delivery *wkly NST's @32wks and twice wkly @36 wks *Serial Growth US @ 24 (doppler only if abnml) *Baseline 24hr urine (additioinal PRN) *weekly DELANO's @ 32wk(if on meds) *Deliver [id number] On Nifedipine 60 mg PO OD OB Labs: Blood Type O Positive 09/17/22 Antibody Screen NEGATIVE 09/17/22 Hemoglobin 14.5 g/dl (12.0-16.0) 10/23/22 Hematocrit 41.8 % (37.0-47.0) 10/23/22 Mean Corpuscular Volume 86.4 fL (80.0-100.0) 10/23/22 Platelet Count 211 K/uL (130-400) 10/23/22 E Rubella IgG Antibody Equivocal (Immune) L 04/30/22 Rapid Plasma Reagin Nonreactive (Nonreactive) 04/30/22 Hepatitis B Surface Antigen. NON-REACTIVE (NON-REACTIVE) 04/30/22 Hepatitis C Antibody (EIA) NON-REACTIVE (NON-REACTIVE) 04/30/22 HIV (1&2) Ag and Ab Confirmation NON-REACTIVE (NON-REACTIVE) 04/30/22 OB Optional Labs: Chlamydia trachomatis RNA Not Detected (NotDetected) 04/30/22 Neisseria gonorrhoeae RNA Not Detected (NotDetected) 04/30/22 Labs Reviewed: Declines genetics--mln Discharge Data Consultations 11/05/22 05:34 Consult Anesthesiology Stat 11/05/22 09:51 Consult Internal Medicine Routine 11/05/22 10:49 Consult Hospitalist Routine Procedures Performed Operation Date: 11/05/22 07:30 Actual Procedures p Section in LD (Delivery of Baby Through Abdominal Incision) - Power Parson MD s Post Bilateral Tubal Ligation Labor & Deliv - Power Parson MD Hospital Course (1) Previous delivery affecting , antepartum: (2) Type 2 diabetes mellitus affecting , antepartum: (3) Obesity affecting , antepartum: (4) Hx of section: (5) S/P : Plan Patient was admitted to labor and delivery for a scheduled section. Procedure was performed without complication. Patient remained in-house for 2 days postdelivery for evaluation of care and had no complications or issues arise. Patient was seen by medicine for continued care of chronic medical concerns. Patient was provided with both written and verbal discharge instructions. Coding Level of Care Code None Diagnoses Previous delivery affecting , antepartum O34.219 Type 2 diabetes mellitus affecting , antepartum O24.119 Obesity affecting , antepartum O99.210 Hx of section Z98.891 S/P Z98.891
== END 2022-11-07 17:10 | disposition home or self-care (01) | DRG 787 ==
LOC: 4S1 05:30 → EDSTATUS 10:05 → 4E2 11:55
PROC: M.PPTLD (2022-11-05 07:30)
DX: O34.211 Maternal care for low transverse scar from previous cesarean delivery; O99.824 Streptococcus B carrier state complicating childbirth; O99.285 Endocrine, nutritional and metabolic diseases complicating the puerperium; O99.334 Smoking (tobacco) complicating childbirth; F17.200 Nicotine dependence, unspecified, uncomplicated; O10.92 Unspecified pre-existing hypertension complicating childbirth; Z88.8 Allergy status to other drugs, medicaments and biological substances; O24.12 Pre-existing type 2 diabetes mellitus, in childbirth; Z30.2 Encounter for sterilization; E11.9 Type 2 diabetes mellitus without complications; Z79.4 Long term (current) use of insulin; O99.214 Obesity complicating childbirth; Z37.0 Single live birth; Z3A.37 37 weeks gestation of pregnancy; E78.5 Hyperlipidemia, unspecified